=== PATIENT | male | born 1960 | race Caucasian/White ===

== ENCOUNTER → 2017-07-22 11:40 | Outpatient (CLI) | payer BC, SELFPAY ==
--- NOTE | 2017-07-22 11:41 | DI.RAD.S_ITS ---
PROCEDURE: XR CHEST 2V INDICATIONS: 56 year-old male with productive cough for one week. TECHNIQUE: 2 views of the chest were acquired. COMPARISON: [facility], CHEST 2 VIEW, 05/24/2015, 11:04. [facility], CHEST 2 VIEW, 02/07/2014, 9:59. [facility], CHEST 2 VIEW, 08/02/2009, 23:48. FINDINGS: Surgical changes and devices: None. Lungs and pleura: No pleural effusions or pneumothorax. Lungs are clear. Mediastinum: Mediastinal contours are normal. Heart size is normal. Bones and chest wall: No suspicious bony abnormalities. Soft tissues appear unremarkable. IMPRESSION: No acute cardiopulmonary disease. Dictated by: Markell Campbell M.D. on 07/22/2017 at 11:57 Approved by: Markell Campbell M.D. on 07/22/2017 at 11:58
== END ==
PROVIDERS: PCP Family Medicine; Visit Provider Physician Assistant
DX: R05 Cough (principal)
CPT/HCPCS: 71046

== ENCOUNTER → 2018-06-15 14:44 | Outpatient (CLI) | payer BC, SELFPAY ==
[2018-06-15 17:57] LABS: Alanine Aminotransferase 30 IU/L (21-72); Albumin 4.8 g/dL (3.5-5.0); Albumin Globulin Ratio 1.5 (1.0-2.8); Alkaline Phosphatase 68 U/L (38-126); Aspartate Aminotransferase 24 IU/L (17-59); Bilirubin Total 0.5 mg/dL (0.2-1.3); Blood Urea Nitrogen 13 mg/dL (9-20); Calcium 9.7 mg/dL (8.4-10.2); Carbon Dioxide 26 mmol/L (22-32); Chloride 100 mmol/L (98-107); Cholesterol 209 mg/dL (140-199); Estimated Glomerular Filt Rate > 60.0 mL/min (>60); Globulin 3.1 g/dL (1.7-4.1); Glucose 93 mg/dL (70-100); HDL Cholesterol 38 mg/dL (40-60); HEMOLYSIS < 15 (0-50); Potassium 4.5 mmol/L (3.4-5.1); Sodium 136 mmol/L (137-145); Total Protein 7.9 g/dL (6.3-8.2); Triglycerides 412 mg/dL (35-150)
[2018-06-15 18:25] LABS: Prostate Specific Antigen Scrn 0.779 ng/mL (0.1-4.0)
== END ==
PROVIDERS: PCP Student in an Organized Health Care Education/Training Program; Visit Provider Student in an Organized Health Care Education/Training Program
DX: E78.2 Mixed hyperlipidemia (principal); I10 Essential (primary) hypertension; K21.9 Gastro-esophageal reflux disease without esophagitis; M10.9 Gout, unspecified
CPT/HCPCS: 36415; 80053; 80061; 82306; G0103

== ENCOUNTER → 2019-04-04 08:03 | Outpatient (CLI) | payer BC, SELFPAY ==
[2019-04-04 09:34] LABS: Cholesterol 195 mg/dL (140-199); HDL Cholesterol 38 mg/dL (40-60); LDL Cholesterol Calculated 94 mg/dL (<100); Triglycerides 314 mg/dL (35-150)
== END ==
PROVIDERS: PCP Student in an Organized Health Care Education/Training Program; Referring Provider Student in an Organized Health Care Education/Training Program; Visit Provider Student in an Organized Health Care Education/Training Program
DX: E78.2 Mixed hyperlipidemia (principal); Z79.899 Other long term (current) drug therapy
CPT/HCPCS: 36415; 80061

== ENCOUNTER → 2019-11-24 09:15 | Outpatient (CLI) | payer BC, SELFPAY ==
[2019-11-24 10:37] LABS: BUN Creatinine Ratio 17.2 (6-22); Blood Urea Nitrogen 16 mg/dL (9-20); Calcium 9.9 mg/dL (8.4-10.2); Carbon Dioxide 29 mmol/L (22-32); Chloride 102 mmol/L (98-107); Estimated Glomerular Filt Rate > 60.0 mL/min (>60); Glucose 101 mg/dL (80-110); HEMOLYSIS < 15 (0-50); Potassium 4.5 mmol/L (3.4-5.1); Sodium 137 mmol/L (137-145); Uric Acid 4.6 mg/dL (3.5-8.5)
[2019-11-24 11:09] LABS: Prostate Specific Antigen Scrn 0.755 ng/mL (0.1-4.0)
[2019-11-24 11:37] LABS: Vitamin D 25 Hydroxy (D3) 36.6 ng/mL (30.0-100.0)
== END ==
PROVIDERS: PCP Student in an Organized Health Care Education/Training Program; Referring Provider Student in an Organized Health Care Education/Training Program; Visit Provider Student in an Organized Health Care Education/Training Program
DX: I10 Essential (primary) hypertension (principal); M10.9 Gout, unspecified; E55.9 Vitamin D deficiency, unspecified; Z12.5 Encounter for screening for malignant neoplasm of prostate
CPT/HCPCS: 36415; 80048; 82306; 84550; G0103

== ENCOUNTER 2020-06-11 07:25 | Outpatient (RCR) | payer BC, SELFPAY ==
--- NOTE | 2020-06-11 15:37 | PT.OIE ---
Current Diagnoses Sprain of unspecified rotator cuff capsule, initial encounter (06/11/20) Past Medical History (Last Updated 11/24/19 @ 09:18 by Benigno Harris MD) TRINH-inhibitor cough Gout Hypertension Visit Care Team Role Provider Type Benigno Harris MD Attending Provider Physician Family Provider Primary Care Provider Referring Provider Specialty: Internal Medicine Address: [address] [place] [address], [address], [facility] Email: [email or web address] Physical Therapy Initial Evaluation PT-OP-A Visit Information Start: 06/08/20 07:19 Freq: Status: Active Protocol: Document 06/11/20 07:31 MB (Rec: 06/11/20 08:10 MB [id number]) Out-Patient Physical Therapy Visit Information Visit Information Visit Type Initial Evaluation Visit Note [place] Out of state, 30 visits per year Visit Start Time 07:31 Visit Stop Time 08:00 Total Visit Minutes 29 Visit Number 1 Evaluation Information Evaluation Date 06/11/20 PT-OP-B Current Condition Start: 06/08/20 07:19 Freq: Status: Active Protocol: Document 06/11/20 07:31 MB (Rec: 06/11/20 08:10 MB [id number]) Current Condition History of Current Condition Onset Date A couple of months ago Current Complaints Left shoulder pain and decreased range of motion History of Current Condition Pt reports that a couple of months ago, he was moving some furniture in his house and then he experienced sharp pain at the top of his left shoulder. He has a lump on the top of his shoulder. Pt reports the pain is not too bad. He notices pain when he is resting. He is waking up at night and losing about an hour or two of sleep. He has trouble lifting his arm up out to the side. The further he lifts his left arm to the side , the more pain he has. His doctor told him he needs a MRI in the surgical window. He is in PT to try it before getting a MRI. 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 He is playing T ball with his grandson. PMH: HTN, gout, HLD Treatment Goals Patient/Caregiver Goals To determine what is going on, decrease pain at night, fix lump on his left shoulder PT-OP-C Subjective Start: 06/08/20 07:19 Freq: Status: Active Protocol: Document 06/11/20 07:31 MB (Rec: 06/11/20 08:10 MB [id number]) OP-PT Subjective Patient Comments Patient Comments See history of current condition Patient Reported Progress Same Patient Questionnaires Quick Dash- Upper Extremity Quick Dash UE Score 15 Quick Dash UE Impairment 1 to 19% Impaired (Score 1-19) OP-PT Pain Assessment Comments Pain Comments Most pain at rest and awakens him at night. Pain with active and passive abduction, 3-4/10 PT-OP-F Manual Assessment Start: 06/08/20 07:19 Freq: Status: Active Protocol: Document 06/11/20 07:31 MB (Rec: 06/11/20 14:15 MB [id number]) Manual Assessments Other Manual Assessments Other Manual Assessments Bony protruberance of L AC joint, left upper traps with increased tension compared to the right PT-OP-J Posture/Palpation/Skin Start: 06/08/20 07:19 Freq: Status: Active Protocol: Document 06/11/20 07:31 MB (Rec: 06/11/20 14:15 MB [id number]) Posture Evaluation Comments Posture Comments Forward head, rounded shoulders, obvious bony abnormality left AC joint with it protruded superiorly, sway back posture, right iliac crest higher than the left, increased Pelon angle PT-OP-K Range of Motion Start: 06/08/20 07:19 Freq: Status: Active Protocol: Document 06/11/20 07:31 MB (Rec: 06/11/20 15:37 MB [id number]) Shoulder Goniometric Range of Motion Shoulder Left Shoulder ROM WFL No Testing Position Standing Flexion 165 Abduction 130 Comments ER and IR passively in supine with shoulder 90/90 is mildly reduced and pt report concern about pain Pain 3-4/10 with active left shoulder abduction in standing Right Shoulder ROM WFL Yes Testing Position Standing Flexion 165 Abduction 162 Comments Normal ER and IR passively in supine with shoulder at 90/90 Elbow/Forearm Range of Motion Elbow/Forearm Bilateral Elbow/Forearm ROM WFL Yes ROM Testing Position Standing Wrist Goniometric Range of Motion Wrist Bilateral Wrist ROM WFL Yes PT-OP-M Strength Start: 06/08/20 07:19 Freq: Status: Active Protocol: Document 06/11/20 07:31 MB (Rec: 06/11/20 15:37 MB [id number]) Shoulder Strength Shoulder Manual Muscle Testing Left Comments Deferred MMT in setting of anatomical changes after injury Right Flexion 5 Normal Abduction (C5) 5 Normal External Rotation 5 Normal Internal Rotation 5 Normal Elbow/Forearm Strength Elbow and Forearm Manual Muscle Testing Left Flexion (C6) 5 Normal Extension (C7) 5 Normal Pronation 5 Normal Supination 5 Normal Right Flexion (C6) 5 Normal Extension (C7) 5 Normal Pronation 5 Normal Supination 5 Normal Wrist Strength Wrist Manual Muscle Testing Left Flexion (C7) 5 Normal Extension (C6) 5 Normal Right Flexion (C7) 5 Normal Extension (C6) 5 Normal PT-OP-T Assessment and Plan Start: 06/08/20 07:19 Freq: Status: Active Protocol: Document 06/11/20 07:31 MB (Rec: 06/11/20 08:15 MB [id number]) Physical Therapy Assessment Rehab Potential Rehabilitation Potential Poor Evaluation Complexity Number of Personal Factors/Comorbidities 1-2 Number of Body Systems Impaired 1-2 Clinical Presentation at Evaluation Unstable Impairments Impairments Activity Tolerance,Functional Activities,Pain,Posture,ROM, Soft Tissue Mobility,Strength Other Concerns Barriers to Rehabilitation Bony abnormality left shoulder needs to be addressed Assessment Summary Assessment Pt is a 59 y/o male presenting 2 months post injury to left shoulder when moving furniture at his house. He heard a pop, had sharp pain and then noticed a lump on the top of his left shoulder. He saw his PCP who he reports told pt that he needs a MRI but that he has to see PT before MRI d/ t insurance constraints. Pt presents with obvious displacement of his left AC joint with bony protrusion, some changes at the GH line, decreased active and passive abduction and possible rotator cuff, ligamentous and capsular injury. He is not appropriate for PT until these anatomical changes are addressed. PT recommends orthopedic consult and MRI with contrast. PT encourages pt to follow-up with Dr. Harris and PT will send this note with recommendations today. Pt will benefit from PT after his anatomical changes are addressed. Physical Therapy Plan Frequency and Duration Frequency of Treatment Discharge Discharge Physical Therapy Discharge Comments Needs orthopedic consult
--- NOTE | 2020-06-11 15:38 | PT.OPPOC ---
Physical, Occupational & Speech Therapy At [facility] Current Diagnoses Sprain of unspecified rotator cuff capsule, initial encounter (06/11/20) Visit Care Team Role Provider Type Benigno Harris MD Attending Provider Physician Family Provider Primary Care Provider Referring Provider Specialty: Internal Medicine Address: [address] [place] [address], [address], [facility] Email: [email or web address] Plan Of Care PT-OP-T Assessment and Plan Start: 06/08/20 07:19 Freq: Status: Active Protocol: Document 06/11/20 07:31 MB (Rec: 06/11/20 08:15 MB [id number]) Physical Therapy Assessment Rehab Potential Rehabilitation Potential Poor Evaluation Complexity Number of Personal Factors/Comorbidities 1-2 Number of Body Systems Impaired 1-2 Clinical Presentation at Evaluation Unstable Impairments Impairments Activity Tolerance,Functional Activities,Pain,Posture,ROM, Soft Tissue Mobility,Strength Other Concerns Barriers to Rehabilitation Bony abnormality left shoulder needs to be addressed Assessment Summary Assessment Pt is a 59 y/o male presenting 2 months post injury to left shoulder when moving furniture at his house. He heard a pop, had sharp pain and then noticed a lump on the top of his left shoulder. He saw his PCP who he reports told pt that he needs a MRI but that he has to see PT before MRI d/ t insurance constraints. Pt presents with obvious displacement of his left AC joint with bony protrusion, some changes at the GH line, decreased active and passive abduction and possible rotator cuff, ligamentous and capsular injury. He is not appropriate for PT until these anatomical changes are addressed. PT recommends orthopedic consult and MRI with contrast. PT encourages pt to follow-up with Dr. Harris and PT will send this note with recommendations today. Pt will benefit from PT after his anatomical changes are addressed. Physical Therapy Plan Frequency and Duration Frequency of Treatment Discharge Discharge Physical Therapy Discharge Comments Needs orthopedic consult Electronically Signed by: Kita Villa PT 06/11/20 [id number] Please Sign and Return: I have reviewed this Plan of Care and certify that the skilled therapy services above are required to meet the patient?s needs. Physician Signature Date Printed Name and Credentials Clinical Instructor Signature Printed Name and Credentials
== END 2020-06-12 08:53 | disposition home or self-care (01) ==
LOC: PHYS 07:25
PROVIDERS: Family Provider Student in an Organized Health Care Education/Training Program; PCP Student in an Organized Health Care Education/Training Program; Referring Provider Student in an Organized Health Care Education/Training Program; Visit Provider Student in an Organized Health Care Education/Training Program
DX: S43.429A Sprain of unspecified rotator cuff capsule, initial encounter (principal)
CPT/HCPCS: 97161

== ENCOUNTER → 2020-06-19 06:40 | Outpatient (CLI) | payer BC, SELFPAY ==
--- NOTE | 2020-06-19 06:42 | DI.MRI.S_ITS ---
PROCEDURE: MR SHOULDER LT WO CON INDICATIONS: Pain, injury, joint distortion TECHNIQUE: Noncontrast oblique coronal T2 fast spin echo with fat saturation, oblique sagittal T1 spin echo and T2 fast spin echo with fat saturation, axial T1 spin echo and T2 fast spin echo with fat saturation through the shoulder. COMPARISON: None. FINDINGS: Image quality: Excellent. Rotator cuff: Tendinosis and low-grade articular and bursal surface partial thickness tear involving distal supraspinatus is seen at its insertion on the humeral head extending to musculotendinous junction. Distal infraspinatus tendinosis is noted. Distal subscapularis tendon is intact. No full-thickness rotator cuff tendon rupture. Sagittal images demonstrate no significant muscle atrophy. Bones and bursae: No bone marrow contusions or fractures. Moderate acromioclavicular joint osteoarthritic changes are seen. Mild glenohumeral joint osteoarthritic changes are also noted. No pathologic subacromial-subdeltoid or subcoracoid bursal fluid is present. Capsule and soft tissues: Focal area of signal abnormality involving superior labrum at 12 o'clock position is seen concerning for focal superior labral tear. Degenerative changes are noted involving inferior labrum with suggestion of anterior-inferior labral tear at 4 to 6 o'clock position. The long head of the biceps tendinosis is seen. The rotator interval appears normal, without fibrosis. The coracohumeral ligament is normal in thickness. IMPRESSION: 1. Tendinosis and low-grade articular and bursal surface partial thickness tear involving distal supraspinatus extending to musculotendinous junction. Distal infraspinatus tendinosis. 2. Moderate acromioclavicular joint osteoarthritis and mild glenohumeral joint osteoarthritis. 3. Finding is concerning for focal superior labral tear at 12 o'clock position and anterior-inferior labral tear at 4 to 6 o'clock position. 4. Proximal intra-articular portion of long head of biceps tendinosis. Dictated by: Darrin Ingram M.D. on 06/19/2020 at 8:57 Approved by: Darrin Ingram M.D. on 06/19/2020 at 11:33
== END ==
PROVIDERS: Family Provider Student in an Organized Health Care Education/Training Program; PCP Student in an Organized Health Care Education/Training Program; Referring Provider Student in an Organized Health Care Education/Training Program; Visit Provider Student in an Organized Health Care Education/Training Program
DX: S46.012A Strain of muscle(s) and tendon(s) of the rotator cuff of left shoulder, initial encounter (principal); M25.512 Pain in left shoulder; M19.012 Primary osteoarthritis, left shoulder; X58.XXXA Exposure to other specified factors, initial encounter
CPT/HCPCS: 73221

== ENCOUNTER 2020-09-21 07:30 | Outpatient (RCR) | payer BC, SELFPAY ==
--- NOTE | 2020-07-27 10:13 | PT.OIE ---
Current Diagnoses Primary osteoarthritis, left shoulder (07/27/20) Pain in left shoulder (07/27/20) Incomplete rotator cuff tear or rupture of left shoulder, not specified as traumatic (07/27/20) Past Medical History (Last Updated 11/24/19 @ 09:18 by Benigno Harris MD) TRINH-inhibitor cough Gout Hypertension Visit Care Team Role Provider Type Benigno Harris MD Primary Care Provider Physician Specialty: Internal Medicine Address: [address] [place] [address], [address], [place], [address] Email: [email or web address] [email or web address] Miranda MD Attending Provider Physician Referring Provider Specialty: Orthopedic Surgery Address: [address] [place] [address], [address] Email: [email or web address] Physical Therapy Initial Evaluation PT-OP-A Visit Information Start: 07/20/20 16:00 Freq: Status: Active Protocol: Document 07/27/20 07:25 MB (Rec: 07/27/20 07:42 MB [id number]) Out-Patient Physical Therapy Visit Information Visit Information Visit Type Initial Evaluation Visit Note [place] out of [place] Visit Start Time 07:25 Visit Stop Time 08:00 Total Visit Minutes 35 Visit Number 1 Evaluation Information Evaluation Date 07/27/20 Precautions Precautions Post-op left shoulder arthroscopic decompression and protocol scanned into EMR though it is vague and there is no op report yet. Pt states that surgeon told him he can be out of the sling 3 days post-op which is 07/28/20. He was told to wear the sling for comfort. PT-OP-B Current Condition Start: 07/20/20 16:00 Freq: Status: Active Protocol: Document 07/27/20 07:25 MB (Rec: 07/27/20 07:42 MB [id number]) Current Condition History of Current Condition Onset Date 07/25/20 Current Complaints Unable to use left arm, pain is improved post-op History of Current Condition Pt returned to Dr. Harris's office and then went to Dr. Miranda's office. He was found to have a tear, bone spurs and compression of a sac. He had surgery two days ago on 07/25/20 and underwent decompression including shaving the bone spurs and cleaning up arthritis. PT has not yet received op report. PT did receive vague post-op guidelines. Pt was told by surgeon that his arm is great and he can be out of the sling 3 days post-op, which is 07/28. Pt reports 3/10 anterior left shoulder pain. From initial eval with PT before surgery: Pt reports that a couple of months ago, he was moving some furniture in his house and then he experienced sharp pain at the top of his left shoulder. He has a lump on the top of his shoulder. Pt reports the pain is not too bad. He notices pain when he is resting. He is waking up at night and losing about an hour or two of sleep. He has trouble lifting his arm up out to the side. The further he lifts his left arm to the side , the more pain he has. Pt underwent left arthroscopic decompression and debridement on From initial eval before surgery: His doctor told him he needs a MRI in the surgical window. He is in PT to try it before getting a MRI . 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 He is playing T ball with his grandson. PMH: HTN, gout, HLD Treatment Goals Patient/Caregiver Goals To get back to use of his arm PT-OP-C Subjective Start: 07/20/20 16:00 Freq: Status: Active Protocol: Document 07/27/20 07:25 MB (Rec: 07/27/20 10:07 MB [id number]) OP-PT Subjective Patient Comments Patient Comments See history of current condition Patient Reported Progress Improving Patient Questionnaires Quick Dash- Upper Extremity Quick Dash UE Score 33 Quick Dash UE Impairment 40 to 59% Impaired (Score 40- 59) PT-OP-K Range of Motion Start: 07/20/20 16:00 Freq: Status: Active Protocol: Document 07/27/20 07:25 MB (Rec: 07/27/20 10:12 MB [id number]) Shoulder Goniometric Range of Motion Shoulder Left Shoulder ROM WFL No Comments Active left shoulder flexion and abduction no more than 20 deg when taking off sling Passive abduction to 63 deg and ER 20 deg and IR 10 deg in supine Right Shoulder ROM WFL Yes Testing Position Standing Flexion 153 Abduction 154 Internal Rotation Behind Back (text) T10 Comments Passive ER and IR with shoulder in 90/90 in supine normal Wrist Goniometric Range of Motion ROM Limitations Comments Reduced wrist extension B that appears to be degenerative in nature PT-OP-M Strength Start: 07/20/20 16:00 Freq: Status: Active Protocol: Document 07/27/20 07:25 MB (Rec: 07/27/20 10:12 MB [id number]) Shoulder Strength Shoulder Manual Muscle Testing Right Flexion 5 Normal Abduction (C5) 5 Normal External Rotation 5 Normal Internal Rotation 5 Normal Left Comments Deferred MMT d/t surgery two days ago Elbow/Forearm Strength Elbow and Forearm Manual Muscle Testing Right Flexion (C6) 5 Normal Extension (C7) 5 Normal Pronation 5 Normal Supination 5 Normal Left Comments Deferred MMT s/p left shoulder surgery 2 days ago Wrist Strength Wrist Manual Muscle Testing Right Comments In reduced range Left Flexion (C7) 5 Normal Extension (C6) 5 Normal Comments In reduced range PT-OP-Q Treatments Start: 07/20/20 16:00 Freq: Status: Active Protocol: Document 07/27/20 07:25 MB (Rec: 07/27/20 08:09 MB [id number]) Therapeutic Exercises Standing Exercises Use of racquet ball for self-massage Standing Exercise Name Intrascapular muscles today Side left Pendulums Side left Comments CW, CCW moving hips and arm follows, forward and backwards Self-Care/Home Management Treatment Education Other Education Use of ice, proper sleeping position with support of head and neck and arms, wearing sling during risky activities where LOB could result and protective response of left arm PT-OP-T Assessment and Plan Start: 07/20/20 16:00 Freq: Status: Active Protocol: Document 07/27/20 07:25 MB (Rec: 07/27/20 08:16 MB [id number]) Physical Therapy Assessment Rehab Potential Rehabilitation Potential Good Evaluation Complexity Number of Personal Factors/Comorbidities 1-2 Number of Body Systems Impaired 1-2 Clinical Presentation at Evaluation Stable Impairments Impairments Activity Tolerance,Balance, Edema,Functional Activities, Functional Mobility,Integument ,Pain,Posture,ROM,Soft Tissue Mobility,Strength,Transfers Other Impairments Personal factors include post- op and unable to drive currently. Body systems affected include musculoskeletal. His clinical presentation is stable post-op . Other Concerns Fall Risk Yes Goals 4 Slab Worker Goal (LTG) Pt will present with at least 4/5 left shoulder flexion, abduction, ER and IR strength to allow normal functional use of arm by 10/27/20. LTG Duration 12 weeks 3 Halfway Goal (LTG) Pt will perform progressive HEP with I including postural, ROM, relaxation and strengthening exercises to allow return to previous active lifestyle by 10/27/20. LTG Duration 12 weeks 2 Slab Worker Goal (LTG) Pt will present with AROM flexion, abduction and IR left shoulder equal to the right to allow functional mobility for ADLs and IADLs by 10/27/20. LTG Duration 12 weeks 1 Impairment QuickDASH reflects 50% impairment Slab Worker Goal (LTG) Pt will present with an improved QuickDASH score to reflect no more than 10% impairment to allow return to previous active lifestyle by . LTG Duration 12 weeks Assessment Summary Assessment Pt is a 59 y/o male evaluated by this PT earlier this spring after left shoulder pain and limitations after injury moving furniture. At that time , PT referred pt back to PCP d /t concern for need for MRI and orthopedic consult. Pt was found to have left shoulder subacromial impingement, AC joint arthritis and partial RCT (supraspinatus). He was found to have osteophytes as well. He underwent left shoulder subacromial decompression, distal clavicle excision, debridement and excision of AC joint on 07/25/20 . Pt states that the surgeon told him he could get out of the sling in 3 days (07/28/20) and vague shoulder protocol sent through EMR. PT receives op note after evaluation today . Ed pt in proper sleeping positioning, pendulums and use of racquet ball for intrascapular massage today. He presents with limitations in left shoulder range and MMT is deferred 2 days post-op. Pt will benefit from PT for progressive passive, AAROM, AROM and strengthening following along protocol guidelines. Functional prognosis is good. Physical Therapy Plan Frequency and Duration Frequency of Treatment 2x/Week Duration of Treatment 12 weeks Plan of Care Start Date 07/27/20 Plan of Care End Date 10/29/20 Therapeutic Interventions Therapeutic Interventions Balance Training,Canalithic Repositioning,Coordination Training,Gait Training,Home Exercise Program,Joint Mobilizations,Manual Therapy, Neuromuscular Re-education, Patient/Caregiver Education, Self-Care/Home Management, Sensory Integration,Soft Tissue Mobilization,Taping, Therapeutic Activities, Therapeutic Exercises Modalities Cold Pack/Ice Massage,Hot Packs Next Visit Focus/Plan Next Note Type Treatment Note Next Visit Plan Thoracic manual work and PROM left shoulder progress to AAROM with cane
--- NOTE | 2020-07-27 10:13 | PT.OPPOC ---
Physical, Occupational & Speech Therapy At [facility] Current Diagnoses Primary osteoarthritis, left shoulder (07/27/20) Pain in left shoulder (07/27/20) Incomplete rotator cuff tear or rupture of left shoulder, not specified as traumatic (07/27/20) Visit Care Team Role Provider Type Benigno Harris MD Primary Care Provider Physician Specialty: Internal Medicine Address: [address] [place] [address], [address], [place], [address] Email: [email or web address] Ramon Miranda MD Attending Provider Physician Referring Provider Specialty: Orthopedic Surgery Address: [address] [place] [address], [id number] Email: [email or web address] Plan Of Care PT-OP-T Assessment and Plan Start: 07/20/20 16:00 Freq: Status: Active Protocol: Document 07/27/20 07:25 MB (Rec: 07/27/20 08:16 MB [id number]) Physical Therapy Assessment Rehab Potential Rehabilitation Potential Good Evaluation Complexity Number of Personal Factors/Comorbidities 1-2 Number of Body Systems Impaired 1-2 Clinical Presentation at Evaluation Stable Impairments Impairments Activity Tolerance,Balance, Edema,Functional Activities, Functional Mobility,Integument ,Pain,Posture,ROM,Soft Tissue Mobility,Strength,Transfers Other Impairments Personal factors include post- op and unable to drive currently. Body systems affected include musculoskeletal. His clinical presentation is stable post-op . Other Concerns Fall Risk Yes Goals 4 Fdc Goal (LTG) Pt will present with at least 4/5 left shoulder flexion, abduction, ER and IR strength to allow normal functional use of arm by 10/27/20. LTG Duration 12 weeks 3 Police Manager Goal (LTG) Pt will perform progressive HEP with I including postural, ROM, relaxation and strengthening exercises to allow return to previous active lifestyle by 10/27/20. LTG Duration 12 weeks 2 Fdc Goal (LTG) Pt will present with AROM flexion, abduction and IR left shoulder equal to the right to allow functional mobility for ADLs and IADLs by 10/27/20. LTG Duration 12 weeks 1 Impairment QuickDASH reflects 50% impairment Fdc Goal (LTG) Pt will present with an improved QuickDASH score to reflect no more than 10% impairment to allow return to previous active lifestyle by . LTG Duration 12 weeks Assessment Summary Assessment Pt is a 59 y/o male evaluated by this PT earlier this spring after left shoulder pain and limitations after injury moving furniture. At that time , PT referred pt back to PCP d /t concern for need for MRI and orthopedic consult. Pt was found to have left shoulder subacromial impingement, AC joint arthritis and partial RCT (supraspinatus). He was found to have osteophytes as well. He underwent left shoulder subacromial decompression, distal clavicle excision, debridement and excision of AC joint on 07/25/20 . Pt states that the surgeon told him he could get out of the sling in 3 days (07/28/20) and vague shoulder protocol sent through EMR. PT receives op note after evaluation today . Ed pt in proper sleeping positioning, pendulums and use of racquet ball for intrascapular massage today. He presents with limitations in left shoulder range and MMT is deferred 2 days post-op. Pt will benefit from PT for progressive passive, AAROM, AROM and strengthening following along protocol guidelines. Functional prognosis is good. Physical Therapy Plan Frequency and Duration Frequency of Treatment 2x/Week Duration of Treatment 12 weeks Plan of Care Start Date 07/27/20 Plan of Care End Date 10/29/20 Therapeutic Interventions Therapeutic Interventions Balance Training,Canalithic Repositioning,Coordination Training,Gait Training,Home Exercise Program,Joint Mobilizations,Manual Therapy, Neuromuscular Re-education, Patient/Caregiver Education, Self-Care/Home Management, Sensory Integration,Soft Tissue Mobilization,Taping, Therapeutic Activities, Therapeutic Exercises Modalities Cold Pack/Ice Massage,Hot Packs Next Visit Focus/Plan Next Note Type Treatment Note Next Visit Plan Thoracic manual work and PROM left shoulder progress to AAROM with cane Plan of Care Dates Plan of Care Start Date 07/27/20 Plan of Care End Date 10/29/20 Electronically Signed by: Kita Villa PT 07/27/20 1013 Please Sign and Return: I have reviewed this Plan of Care and certify that the skilled therapy services above are required to meet the patient?s needs. Physician Signature Date Printed Name and Credentials Clinical Instructor Signature Printed Name and Credentials
--- NOTE | 2020-07-30 11:13 | PT.OTN ---
Current Diagnoses Primary osteoarthritis, left shoulder (07/30/20) Pain in left shoulder (07/30/20) Incomplete rotator cuff tear or rupture of left shoulder, not specified as traumatic (07/30/20) Physical Therapy Treatment Note PT-OP-A Visit Information Start: 07/20/20 16:00 Freq: Status: Active Protocol: Document 07/30/20 10:32 MB (Rec: 07/30/20 11:13 MB [id number]) Out-Patient Physical Therapy Visit Information Visit Information Visit Type Treatment Note Visit Note [place] out [place] [facility] Visit Start Time 10:32 Visit Stop Time 11:11 Total Visit Minutes 39 Visit Number 2 Precautions Precautions Post-op left shoulder arthroscopic decompression and protocol scanned into EMR though it is vague and there is no op report yet. Pt states that surgeon told him he can be out of the sling 3 days post-op which is 07/28/20. He was told to wear the sling for comfort. PT-OP-B Current Condition Start: 07/20/20 16:00 Freq: Status: Active Protocol: Document 07/27/20 07:25 MB (Rec: 07/27/20 07:42 MB [id number]) Current Condition History of Current Condition Onset Date 07/25/20 Current Complaints Unable to use left arm, pain is improved post-op History of Current Condition Pt returned to Dr. Harris's office and then went to Dr. Miranda's office. He was found to have a tear, bone spurs and compression of a sac. He had surgery two days ago on 07/25/20 and underwent decompression including shaving the bone spurs and cleaning up arthritis. PT has not yet received op report. PT did receive vague post-op guidelines. Pt was told by surgeon that his arm is great and he can be out of the sling 3 days post-op, which is 07/28. Pt reports 3/10 anterior left shoulder pain. From initial eval with PT before surgery: Pt reports that a couple of months ago, he was moving some furniture in his house and then he experienced sharp pain at the top of his left shoulder. He has a lump on the top of his shoulder. Pt reports the pain is not too bad. He notices pain when he is resting. He is waking up at night and losing about an hour or two of sleep. He has trouble lifting his arm up out to the side. The further he lifts his left arm to the side , the more pain he has. Pt underwent left arthroscopic decompression and debridement on From initial eval before surgery: His doctor told him he needs a MRI in the surgical window. He is in PT to try it before getting a MRI . 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 He is playing T ball with his grandson. PMH: HTN, gout, HLD Treatment Goals Patient/Caregiver Goals To get back to use of his arm PT-OP-C Subjective Start: 07/20/20 16:00 Freq: Status: Active Protocol: Document 07/30/20 10:32 MB (Rec: 07/30/20 11:13 MB [id number]) OP-PT Subjective Patient Comments Patient Comments Pt states that he is doing well. PT-OP-K Range of Motion Start: 07/20/20 16:00 Freq: Status: Active Protocol: Document 07/27/20 07:25 MB (Rec: 07/27/20 10:12 MB [id number]) Shoulder Goniometric Range of Motion Shoulder Left Shoulder ROM WFL No Comments Active left shoulder flexion and abduction no more than 20 deg when taking off sling Passive abduction to 63 deg and ER 20 deg and IR 10 deg in supine Right Shoulder ROM WFL Yes Testing Position Standing Flexion 153 Abduction 154 Internal Rotation Behind Back (text) T10 Comments Passive ER and IR with shoulder in 90/90 in supine normal Wrist Goniometric Range of Motion ROM Limitations Comments Reduced wrist extension B that appears to be degenerative in nature PT-OP-M Strength Start: 07/20/20 16:00 Freq: Status: Active Protocol: Document 07/27/20 07:25 MB (Rec: 07/27/20 10:12 MB [id number]) Shoulder Strength Shoulder Manual Muscle Testing Right Flexion 5 Normal Abduction (C5) 5 Normal External Rotation 5 Normal Internal Rotation 5 Normal Left Comments Deferred MMT d/t surgery two days ago Elbow/Forearm Strength Elbow and Forearm Manual Muscle Testing Right Flexion (C6) 5 Normal Extension (C7) 5 Normal Pronation 5 Normal Supination 5 Normal Left Comments Deferred MMT s/p left shoulder surgery 2 days ago Wrist Strength Wrist Manual Muscle Testing Right Comments In reduced range Left Flexion (C7) 5 Normal Extension (C6) 5 Normal Comments In reduced range PT-OP-Q Treatments Start: 07/20/20 16:00 Freq: Status: Active Protocol: Document 07/30/20 10:32 MB (Rec: 07/30/20 11:13 MB [id number]) Therapeutic Exercises Supine Exercises Cane flexion with RUE support Side bilateral Comments 10 reps slowly, head and neck supported Sitting Exercises Thoracic rotation with breathing Side bilateral Comments Breathing end range Manual Therapy Treatment Other Other Manual Treatments Pt prone: B scapular mobs grade III, PA thoracic mobs grade III with pt performing breathing with mobilization and he presents with very tight ribs and thorax, grade III PA mobs left shoulder in prone at GH joint, passive left shoulder ROM. Positional release left pects in supine. Pt's dressing is off and he has steri strips and areas of echymosis left shoulder. PROM left shoulder flexion, abduction and ER/IR PT-OP-T Assessment and Plan Start: 07/20/20 16:00 Freq: Status: Active Protocol: Document 07/30/20 10:32 MB (Rec: 07/30/20 11:13 MB [id number]) Physical Therapy Assessment Rehab Potential Rehabilitation Potential Good Evaluation Complexity Number of Personal Factors/Comorbidities 1-2 Number of Body Systems Impaired 1-2 Clinical Presentation at Evaluation Stable Impairments Impairments Activity Tolerance,Balance, Edema,Functional Activities, Functional Mobility,Integument ,Pain,Posture,ROM,Soft Tissue Mobility,Strength,Transfers Other Impairments Personal factors include post- op and unable to drive currently. Body systems affected include musculoskeletal. His clinical presentation is stable post-op . Other Concerns Fall Risk Yes Goals 4 Alf Goal (LTG) Pt will present with at least 4/5 left shoulder flexion, abduction, ER and IR strength to allow normal functional use of arm by 10/27/20. LTG Duration 12 weeks 3 Alf Goal (LTG) Pt will perform progressive HEP with I including postural, ROM, relaxation and strengthening exercises to allow return to previous active lifestyle by 10/27/20. LTG Duration 12 weeks 2 Clinical Haematologist Goal (LTG) Pt will present with AROM flexion, abduction and IR left shoulder equal to the right to allow functional mobility for ADLs and IADLs by 10/27/20. LTG Duration 12 weeks 1 Impairment QuickDASH reflects 50% impairment Alf Goal (LTG) Pt will present with an improved QuickDASH score to reflect no more than 10% impairment to allow return to previous active lifestyle by . LTG Duration 12 weeks Assessment Summary Assessment Pt presents with a lot of thoracic tension and initiated work for this today. Con't progression as written below. Added cane flexion and thoracic rotation in sitting to HEP. Physical Therapy Plan Frequency and Duration Frequency of Treatment 2x/Week Duration of Treatment 12 weeks Plan of Care Start Date 07/27/20 Plan of Care End Date 10/29/20 Therapeutic Interventions Therapeutic Interventions Balance Training,Canalithic Repositioning,Coordination Training,Gait Training,Home Exercise Program,Joint Mobilizations,Manual Therapy, Neuromuscular Re-education, Patient/Caregiver Education, Self-Care/Home Management, Sensory Integration,Soft Tissue Mobilization,Taping, Therapeutic Activities, Therapeutic Exercises Modalities Cold Pack/Ice Massage,Hot Packs Next Visit Focus/Plan Next Note Type Treatment Note Next Visit Plan Progress cane abduction
--- NOTE | 2020-08-02 08:15 | PT.OTN ---
Current Diagnoses Primary osteoarthritis, left shoulder (08/02/20) Pain in left shoulder (08/02/20) Incomplete rotator cuff tear or rupture of left shoulder, not specified as traumatic (08/02/20) Physical Therapy Treatment Note PT-OP-A Visit Information Start: 07/20/20 16:00 Freq: Status: Active Protocol: Document 08/02/20 07:31 SP (Rec: 08/02/20 11:40 SP [id number]) Out-Patient Physical Therapy Visit Information Visit Information Visit Type Treatment Note Visit Note [place] out of [place] [facility] Visit Start Time 07:31 Visit Stop Time 08:15 Total Visit Minutes 44 Visit Number 3 Number of COPYMAN Visits 1 Evaluation Information Evaluation Date 07/27/20 Precautions Precautions Post-op left shoulder arthroscopic decompression and protocol scanned into EMR though it is vague and there is no op report yet. Pt states that surgeon told him he can be out of the sling 3 days post-op which is 07/28/20. He was told to wear the sling for comfort. PT-OP-B Current Condition Start: 07/20/20 16:00 Freq: Status: Active Protocol: Document 07/27/20 07:25 MB (Rec: 07/27/20 07:42 MB [id number]) Current Condition History of Current Condition Onset Date 07/25/20 Current Complaints Unable to use left arm, pain is improved post-op History of Current Condition Pt returned to Dr. Harris's office and then went to Dr. Miranda's office. He was found to have a tear, bone spurs and compression of a sac. He had surgery two days ago on 07/25/20 and underwent decompression including shaving the bone spurs and cleaning up arthritis. PT has not yet received op report. PT did receive vague post-op guidelines. Pt was told by surgeon that his arm is great and he can be out of the sling 3 days post-op, which is 07/28. Pt reports 3/10 anterior left shoulder pain. From initial eval with PT before surgery: Pt reports that a couple of months ago, he was moving some furniture in his house and then he experienced sharp pain at the top of his left shoulder. He has a lump on the top of his shoulder. Pt reports the pain is not too bad. He notices pain when he is resting. He is waking up at night and losing about an hour or two of sleep. He has trouble lifting his arm up out to the side. The further he lifts his left arm to the side , the more pain he has. Pt underwent left arthroscopic decompression and debridement on From initial eval before surgery: His doctor told him he needs a MRI in the surgical window. He is in PT to try it before getting a MRI . 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 He is playing T ball with his grandson. PMH: HTN, gout, HLD Treatment Goals Patient/Caregiver Goals To get back to use of his arm PT-OP-C Subjective Start: 07/20/20 16:00 Freq: Status: Active Protocol: Document 08/02/20 07:31 SP (Rec: 08/02/20 11:40 SP [id number]) OP-PT Subjective Patient Comments Patient Comments Pt states getting better every day. Not really having pain. Patient Reported Progress Improving PT-OP-K Range of Motion Start: 07/20/20 16:00 Freq: Status: Active Protocol: Document 07/27/20 07:25 MB (Rec: 07/27/20 10:12 MB [id number]) Shoulder Goniometric Range of Motion Shoulder Left Shoulder ROM WFL No Comments Active left shoulder flexion and abduction no more than 20 deg when taking off sling Passive abduction to 63 deg and ER 20 deg and IR 10 deg in supine Right Shoulder ROM WFL Yes Testing Position Standing Flexion 153 Abduction 154 Internal Rotation Behind Back (text) T10 Comments Passive ER and IR with shoulder in 90/90 in supine normal Wrist Goniometric Range of Motion ROM Limitations Comments Reduced wrist extension B that appears to be degenerative in nature PT-OP-M Strength Start: 07/20/20 16:00 Freq: Status: Active Protocol: Document 07/27/20 07:25 MB (Rec: 07/27/20 10:12 MB [id number]) Shoulder Strength Shoulder Manual Muscle Testing Right Flexion 5 Normal Abduction (C5) 5 Normal External Rotation 5 Normal Internal Rotation 5 Normal Left Comments Deferred MMT d/t surgery two days ago Elbow/Forearm Strength Elbow and Forearm Manual Muscle Testing Right Flexion (C6) 5 Normal Extension (C7) 5 Normal Pronation 5 Normal Supination 5 Normal Left Comments Deferred MMT s/p left shoulder surgery 2 days ago Wrist Strength Wrist Manual Muscle Testing Right Comments In reduced range Left Flexion (C7) 5 Normal Extension (C6) 5 Normal Comments In reduced range PT-OP-Q Treatments Start: 07/20/20 16:00 Freq: Status: Active Protocol: Document 08/02/20 07:31 SP (Rec: 08/02/20 11:40 SP [id number]) Therapeutic Exercises Supine Exercises cane ER w/RUE support Side left Comments 10 reps slowly, head and neck supported cane abd w/ RUE support Supine Exercise Name added to HEP Side left Comments 10 reps slowly, head and neck supported- pain free range Cane flexion with RUE support Side bilateral Comments 10 reps slowly, head and neck supported Sidelying Exercises open book Sidelying Exercise Name hand on head (in PT only) Side left Comments good feedback response no pain , less stiffness in mid back and shld complex AAROM ABD Sidelying Exercise Name 90> 110* ( PT only) Side left Comments pain free range Sitting Exercises Thoracic rotation with breathing Side bilateral Comments Breathing end range Standing Exercises Pendulums Standing Exercise Name flex, ext, abd, CW, CCW Side left Comments cued move hips and arm follows , forward and backwards Manual Therapy Treatment Soft Tissue Mobilization UT, pec Body Location L Mobilization Type Rolling,Strumming,Sustained Pressure,Other Intensity/Depth Moderate Body Position Sidelying Comments good response, initiated MWM UT head turn nod using theracane, review standing racquetball at wall post scap musculature. Joint Mobilizations scapular PNF Joint L Grade II Body Position Sidelying Comments retraction/ depression with ed for stabilization for upcoming exercises with understanding. scar mob Joint L shld Body Position Sidelying Comments good reponse. Steristrips fell off pre visit today, intact scar. PT-OP-T Assessment and Plan Start: 07/20/20 16:00 Freq: Status: Active Protocol: Document 08/02/20 07:31 SP (Rec: 08/02/20 11:40 SP [id number]) Physical Therapy Assessment Goals 4 Cnc Field Service Engineer Goal (LTG) Pt will present with at least 4/5 left shoulder flexion, abduction, ER and IR strength to allow normal functional use of arm by 10/27/20. LTG Duration 12 weeks 3 Retirement Goal (LTG) Pt will perform progressive HEP with I including postural, ROM, relaxation and strengthening exercises to allow return to previous active lifestyle by 10/27/20. LTG Duration 12 weeks 2 Cnc Field Service Engineer Goal (LTG) Pt will present with AROM flexion, abduction and IR left shoulder equal to the right to allow functional mobility for ADLs and IADLs by 10/27/20. LTG Duration 12 weeks 1 Impairment QuickDASH reflects 50% impairment Retirement Goal (LTG) Pt will present with an improved QuickDASH score to reflect no more than 10% impairment to allow return to previous active lifestyle by . LTG Duration 12 weeks Assessment Summary Assessment Pt responded well to last tx and manual today. Provided HEP review with education on scapular PNF stabilization. Initiated supine L shld abd and ER using dowel and sidelying open bookwithin painfree range, good understanding. Cued scap depression w/ mirror feedback during seated TS rotation awareness and improved self corrections. Physical Therapy Plan Frequency and Duration Frequency of Treatment 2x/Week Duration of Treatment 12 weeks Plan of Care Start Date 07/27/20 Plan of Care End Date 10/29/20 Therapeutic Interventions Therapeutic Interventions Balance Training,Canalithic Repositioning,Coordination Training,Gait Training,Home Exercise Program,Joint Mobilizations,Manual Therapy, Neuromuscular Re-education, Patient/Caregiver Education, Self-Care/Home Management, Sensory Integration,Soft Tissue Mobilization,Taping, Therapeutic Activities, Therapeutic Exercises Modalities Cold Pack/Ice Massage,Hot Packs Next Visit Focus/Plan Next Note Type Treatment Note Next Visit Plan Assess response to HEP: supine FF, ABD, ER using dowel, seated TS rotation.
--- NOTE | 2020-08-02 08:15 | PT.OTN ---
Current Diagnoses Primary osteoarthritis, left shoulder (08/02/20) Pain in left shoulder (08/02/20) Incomplete rotator cuff tear or rupture of left shoulder, not specified as traumatic (08/02/20) Physical Therapy Treatment Note PT-OP-A Visit Information Start: 07/20/20 16:00 Freq: Status: Active Protocol: Document 08/02/20 07:31 SP (Rec: 08/02/20 11:40 SP [id number]) Out-Patient Physical Therapy Visit Information Visit Information Visit Type Treatment Note Visit Note [place] out [place] [facility] Visit Start Time 07:31 Visit Stop Time 08:15 Total Visit Minutes 44 Visit Number 3 Number of MAST MAKER Visits 1 Evaluation Information Evaluation Date 07/27/20 Precautions Precautions Post-op left shoulder arthroscopic decompression and protocol scanned into EMR though it is vague and there is no op report yet. Pt states that surgeon told him he can be out of the sling 3 days post-op which is 07/28/20. He was told to wear the sling for comfort. PT-OP-B Current Condition Start: 07/20/20 16:00 Freq: Status: Active Protocol: Document 07/27/20 07:25 MB (Rec: 07/27/20 07:42 MB [id number]) Current Condition History of Current Condition Onset Date 07/25/20 Current Complaints Unable to use left arm, pain is improved post-op History of Current Condition Pt returned to Dr. Harris's office and then went to Dr. Miranda's office. He was found to have a tear, bone spurs and compression of a sac. He had surgery two days ago on 07/25/20 and underwent decompression including shaving the bone spurs and cleaning up arthritis. PT has not yet received op report. PT did receive vague post-op guidelines. Pt was told by surgeon that his arm is great and he can be out of the sling 3 days post-op, which is 07/28. Pt reports 3/10 anterior left shoulder pain. From initial eval with PT before surgery: Pt reports that a couple of months ago, he was moving some furniture in his house and then he experienced sharp pain at the top of his left shoulder. He has a lump on the top of his shoulder. Pt reports the pain is not too bad. He notices pain when he is resting. He is waking up at night and losing about an hour or two of sleep. He has trouble lifting his arm up out to the side. The further he lifts his left arm to the side , the more pain he has. Pt underwent left arthroscopic decompression and debridement on From initial eval before surgery: His doctor told him he needs a MRI in the surgical window. He is in PT to try it before getting a MRI . 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 He is playing T ball with his grandson. PMH: HTN, gout, HLD Treatment Goals Patient/Caregiver Goals To get back to use of his arm PT-OP-C Subjective Start: 07/20/20 16:00 Freq: Status: Active Protocol: Document 08/02/20 07:31 SP (Rec: 08/02/20 11:40 SP [id number]) OP-PT Subjective Patient Comments Patient Comments Pt states getting better every day. Not really having pain. Patient Reported Progress Improving PT-OP-K Range of Motion Start: 07/20/20 16:00 Freq: Status: Active Protocol: Document 07/27/20 07:25 MB (Rec: 07/27/20 10:12 MB [id number]) Shoulder Goniometric Range of Motion Shoulder Left Shoulder ROM WFL No Comments Active left shoulder flexion and abduction no more than 20 deg when taking off sling Passive abduction to 63 deg and ER 20 deg and IR 10 deg in supine Right Shoulder ROM WFL Yes Testing Position Standing Flexion 153 Abduction 154 Internal Rotation Behind Back (text) T10 Comments Passive ER and IR with shoulder in 90/90 in supine normal Wrist Goniometric Range of Motion ROM Limitations Comments Reduced wrist extension B that appears to be degenerative in nature PT-OP-M Strength Start: 07/20/20 16:00 Freq: Status: Active Protocol: Document 07/27/20 07:25 MB (Rec: 07/27/20 10:12 MB [id number]) Shoulder Strength Shoulder Manual Muscle Testing Right Flexion 5 Normal Abduction (C5) 5 Normal External Rotation 5 Normal Internal Rotation 5 Normal Left Comments Deferred MMT d/t surgery two days ago Elbow/Forearm Strength Elbow and Forearm Manual Muscle Testing Right Flexion (C6) 5 Normal Extension (C7) 5 Normal Pronation 5 Normal Supination 5 Normal Left Comments Deferred MMT s/p left shoulder surgery 2 days ago Wrist Strength Wrist Manual Muscle Testing Right Comments In reduced range Left Flexion (C7) 5 Normal Extension (C6) 5 Normal Comments In reduced range PT-OP-Q Treatments Start: 07/20/20 16:00 Freq: Status: Active Protocol: Document 08/02/20 07:31 SP (Rec: 08/02/20 11:40 SP [id number]) Therapeutic Exercises Supine Exercises cane ER w/RUE support Side left Comments 10 reps slowly, head and neck supported cane abd w/ RUE support Supine Exercise Name added to HEP Side left Comments 10 reps slowly, head and neck supported- pain free range Cane flexion with RUE support Side bilateral Comments 10 reps slowly, head and neck supported Sidelying Exercises open book Sidelying Exercise Name hand on head (in PT only) Side left Comments good feedback response no pain , less stiffness in mid back and shld complex AAROM ABD Sidelying Exercise Name 90> 110* ( PT only) Side left Comments pain free range Sitting Exercises Thoracic rotation with breathing Side bilateral Comments Breathing end range Standing Exercises Pendulums Standing Exercise Name flex, ext, abd, CW, CCW Side left Comments cued move hips and arm follows , forward and backwards Manual Therapy Treatment Soft Tissue Mobilization UT, pec Body Location L Mobilization Type Rolling,Strumming,Sustained Pressure,Other Intensity/Depth Moderate Body Position Sidelying Comments good response, initiated MWM UT head turn nod using theracane, review standing racquetball at wall post scap musculature. Joint Mobilizations scapular PNF Joint L Grade II Body Position Sidelying Comments retraction/ depression with ed for stabilization for upcoming exercises with understanding. scar mob Joint L shld Body Position Sidelying Comments good reponse. Steristrips fell off pre visit today, intact scar. 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 LTG Duration 12 weeks 3 Electric Screw Driver Operator Goal (LTG) Pt will perform progressive HEP with I including postural, ROM, relaxation and strengthening exercises to allow return to previous active lifestyle by 10/27/20. LTG Duration 12 weeks 2 Custodial Goal (LTG) Pt will present with AROM flexion, abduction and IR left shoulder equal to the right to allow functional mobility for ADLs and IADLs by 10/27/20. LTG Duration 12 weeks 1 Impairment QuickDASH reflects 50% impairment Custodial Goal (LTG) Pt will present with an improved QuickDASH score to reflect no more than 10% impairment to allow return to previous active lifestyle by . LTG Duration 12 weeks Assessment Summary Assessment Pt responded well to last tx and manual today. Provided HEP review with education on scapular PNF stabilization. Initiated supine L shld abd and ER using dowel and sidelying open bookwithin painfree range, good understanding. Cued scap depression w/ mirror feedback during seated TS rotation awareness and improved self corrections. Physical Therapy Plan Frequency and Duration Frequency of Treatment 2x/Week Duration of Treatment 12 weeks Plan of Care Start Date 07/27/20 Plan of Care End Date 10/29/20 Therapeutic Interventions Therapeutic Interventions Balance Training,Canalithic Repositioning,Coordination Training,Gait Training,Home Exercise Program,Joint Mobilizations,Manual Therapy, Neuromuscular Re-education, Patient/Caregiver Education, Self-Care/Home Management, Sensory Integration,Soft Tissue Mobilization,Taping, Therapeutic Activities, Therapeutic Exercises Modalities Cold Pack/Ice Massage,Hot Packs Next Visit Focus/Plan Next Note Type Treatment Note Next Visit Plan Assess response to HEP: supine FF, ABD, ER using dowel, seated TS rotation.
--- NOTE | 2020-08-07 08:14 | PT.OTN ---
Current Diagnoses Primary osteoarthritis, left shoulder (08/07/20) Pain in left shoulder (08/07/20) Incomplete rotator cuff tear or rupture of left shoulder, not specified as traumatic (08/07/20) Physical Therapy Treatment Note PT-OP-A Visit Information Start: 07/20/20 16:00 Freq: Status: Active Protocol: Document 08/07/20 07:30 MB (Rec: 08/07/20 08:13 MB [id number]) Out-Patient Physical Therapy Visit Information Visit Information Visit Type Treatment Note Visit Note [place] of [place] [facility] Visit Start Time 07:30 Visit Stop Time 08:40 Total Visit Minutes 40 Visit Number 4 Precautions Precautions Post-op left shoulder arthroscopic decompression and protocol scanned into EMR though it is vague and there is no op report yet. Pt states that surgeon told him he can be out of the sling 3 days post-op which is 07/28/20. He was told to wear the sling for comfort. PT-OP-B Current Condition Start: 07/20/20 16:00 Freq: Status: Active Protocol: Document 07/27/20 07:25 MB (Rec: 07/27/20 07:42 MB [id number]) Current Condition History of Current Condition Onset Date 07/25/20 Current Complaints Unable to use left arm, pain is improved post-op History of Current Condition Pt returned to Dr. Harris's office and then went to Dr. Miranda's office. He was found to have a tear, bone spurs and compression of a sac. He had surgery two days ago on 07/25/20 and underwent decompression including shaving the bone spurs and cleaning up arthritis. PT has not yet received op report. PT did receive vague post-op guidelines. Pt was told by surgeon that his arm is great and he can be out of the sling 3 days post-op, which is 07/28. Pt reports 3/10 anterior left shoulder pain. From initial eval with PT before surgery: Pt reports that a couple of months ago, he was moving some furniture in his house and then he experienced sharp pain at the top of his left shoulder. He has a lump on the top of his shoulder. Pt reports the pain is not too bad. He notices pain when he is resting. He is waking up at night and losing about an hour or two of sleep. He has trouble lifting his arm up out to the side. The further he lifts his left arm to the side , the more pain he has. Pt underwent left arthroscopic decompression and debridement on From initial eval before surgery: His doctor told him he needs a MRI in the surgical window. He is in PT to try it before getting a MRI . 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 He is playing T ball with his grandson. PMH: HTN, gout, HLD Treatment Goals Patient/Caregiver Goals To get back to use of his arm PT-OP-C Subjective Start: 07/20/20 16:00 Freq: Status: Active Protocol: Document 08/07/20 07:30 MB (Rec: 08/07/20 08:13 MB [id number]) OP-PT Subjective Patient Comments Patient Comments Pt states that he is doing good. He has been sleeping in the bed for a week. PT-OP-K Range of Motion Start: 07/20/20 16:00 Freq: Status: Active Protocol: Document 07/27/20 07:25 MB (Rec: 07/27/20 10:12 MB [id number]) Shoulder Goniometric Range of Motion Shoulder Left Shoulder ROM WFL No Comments Active left shoulder flexion and abduction no more than 20 deg when taking off sling Passive abduction to 63 deg and ER 20 deg and IR 10 deg in supine Right Shoulder ROM WFL Yes Testing Position Standing Flexion 153 Abduction 154 Internal Rotation Behind Back (text) T10 Comments Passive ER and IR with shoulder in 90/90 in supine normal Wrist Goniometric Range of Motion ROM Limitations Comments Reduced wrist extension B that appears to be degenerative in nature PT-OP-M Strength Start: 07/20/20 16:00 Freq: Status: Active Protocol: Document 07/27/20 07:25 MB (Rec: 07/27/20 10:12 MB [id number]) Shoulder Strength Shoulder Manual Muscle Testing Right Flexion 5 Normal Abduction (C5) 5 Normal External Rotation 5 Normal Internal Rotation 5 Normal Left Comments Deferred MMT d/t surgery two days ago Elbow/Forearm Strength Elbow and Forearm Manual Muscle Testing Right Flexion (C6) 5 Normal Extension (C7) 5 Normal Pronation 5 Normal Supination 5 Normal Left Comments Deferred MMT s/p left shoulder surgery 2 days ago Wrist Strength Wrist Manual Muscle Testing Right Comments In reduced range Left Flexion (C7) 5 Normal Extension (C6) 5 Normal Comments In reduced range PT-OP-Q Treatments Start: 07/20/20 16:00 Freq: Status: Active Protocol: Document 08/07/20 07:30 MB (Rec: 08/07/20 08:13 MB [id number]) Therapeutic Exercises Supine Exercises Posterior capsule stretch Side bilateral Equipment Used Purple pool noodle Comments 2 reps each, 20 sec hold Active ROM over pool noodle Supine Exercise Name Dynamic and static pect stretch, Ts, half Xs, flexion Side bilateral Equipment Used Purple pool noodle cane ER w/RUE support Supine Exercise Name Over purple pool noodle Side left Equipment Used Purple pool noodle, cane Comments 10 reps slowly cane abd w/ RUE support Supine Exercise Name Over purple pool noodle Side left Equipment Used Pool noodle and cane Comments 10 reps Cane flexion with RUE support Supine Exercise Name Over purple pool noodle Side bilateral Equipment Used Pool noodle and cane Comments 10 reps Manual Therapy Treatment Other Other Manual Treatments Pt prone: B scapular mobs grade III, PA thoracic mobs grade III with pt performing breathing with mobilization, grade III PA mobs left shoulder in prone at GH joint. Positional release left pect in prone. Self-Care/Home Management Treatment Education Other Education PT writes out notes for pt to take to Dr. Miranda: given pt is 2 weeks post-op, have been careful and doing tasks to tolerance and have progressed to AROM in hook lying to tolerable range. Asked surgeon to write out hard precautions for PT and when can start UBE and gentle strengthening in hook lying PT-OP-R Modalities Start: 08/02/20 11:44 Freq: Status: Active Protocol: Document 08/02/20 07:31 SP (Rec: 08/02/20 11:47 SP [id number]) Hot Pack/Cold Pack Treatment cryocuff Location L shld Patient Position Sitting Treatment Duration (minutes) 8 Patient Tolerance Good PT-OP-T Assessment and Plan Start: 07/20/20 16:00 Freq: Status: Active Protocol: Document 08/07/20 07:30 MB (Rec: 08/07/20 08:13 MB [id number]) Physical Therapy Assessment Rehab Potential Rehabilitation Potential Good Evaluation Complexity Number of Personal Factors/Comorbidities 1-2 Number of Body Systems Impaired 1-2 Clinical Presentation at Evaluation Stable Impairments Impairments Activity Tolerance,Balance, Edema,Functional Activities, Functional Mobility,Integument ,Pain,Posture,ROM,Soft Tissue Mobility,Strength,Transfers Other Impairments Personal factors include post- op and unable to drive currently. Body systems affected include musculoskeletal. His clinical presentation is stable post-op . Other Concerns Fall Risk Yes Goals 4 Fpc Goal (LTG) Pt will present with at least 4/5 left shoulder flexion, abduction, ER and IR strength to allow normal functional use of arm by 10/27/20. LTG Duration 12 weeks 3 Fpc Goal (LTG) Pt will perform progressive HEP with I including postural, ROM, relaxation and strengthening exercises to allow return to previous active lifestyle by 10/27/20. LTG Duration 12 weeks 2 Travel Journalist Goal (LTG) Pt will present with AROM flexion, abduction and IR left shoulder equal to the right to allow functional mobility for ADLs and IADLs by 10/27/20. LTG Duration 12 weeks 1 Impairment QuickDASH reflects 50% impairment Travel Journalist Goal (LTG) Pt will present with an improved QuickDASH score to reflect no more than 10% impairment to allow return to previous active lifestyle by . LTG Duration 12 weeks Assessment Summary Assessment Pt does well with AROM to tolerance while lying over pool noodle today. Reviewed what he can talk with surgeon about on at his first post-op which will be 2 weeks , 1 day post-op. He con't with left pect and thoracic tension. Physical Therapy Plan Frequency and Duration Frequency of Treatment 2x/Week Duration of Treatment 12 weeks Plan of Care Start Date 07/27/20 Plan of Care End Date 10/29/20 Therapeutic Interventions Therapeutic Interventions Balance Training,Canalithic Repositioning,Coordination Training,Gait Training,Home Exercise Program,Joint Mobilizations,Manual Therapy, Neuromuscular Re-education, Patient/Caregiver Education, Self-Care/Home Management, Sensory Integration,Soft Tissue Mobilization,Taping, Therapeutic Activities, Therapeutic Exercises Modalities Cold Pack/Ice Massage,Hot Packs Next Visit Focus/Plan Next Note Type Treatment Note Next Visit Plan Ongoing pect release, review exercises
--- NOTE | 2020-08-10 08:15 | PT.OTN ---
Current Diagnoses Primary osteoarthritis, left shoulder (08/10/20) Pain in left shoulder (08/10/20) Incomplete rotator cuff tear or rupture of left shoulder, not specified as traumatic (08/10/20) Physical Therapy Treatment Note PT-OP-A Visit Information Start: 07/20/20 16:00 Freq: Status: Active Protocol: Document 08/10/20 07:30 MB (Rec: 08/10/20 08:14 MB [id number]) Out-Patient Physical Therapy Visit Information Visit Information Visit Type Treatment Note Visit Note [place] [facility] Visit Start Time 07:30 Visit Stop Time 08:20 Total Visit Minutes 40 Visit Number 5 Precautions Precautions Post-op left shoulder arthroscopic decompression and protocol scanned into EMR though it is vague and there is no op report yet. Pt states that surgeon told him he can be out of the sling 3 days post-op which is 07/28/20. He was told to wear the sling for comfort. PT-OP-B Current Condition Start: 07/20/20 16:00 Freq: Status: Active Protocol: Document 07/27/20 07:25 MB (Rec: 07/27/20 07:42 MB [id number]) Current Condition History of Current Condition Onset Date 07/25/20 Current Complaints Unable to use left arm, pain is improved post-op History of Current Condition Pt returned to Dr. Harris's office and then went to Dr. Miranda's office. He was found to have a tear, bone spurs and compression of a sac. He had surgery two days ago on 07/25/20 and underwent decompression including shaving the bone spurs and cleaning up arthritis. PT has not yet received op report. PT did receive vague post-op guidelines. Pt was told by surgeon that his arm is great and he can be out of the sling 3 days post-op, which is 07/28. Pt reports 3/10 anterior left shoulder pain. From initial eval with PT before surgery: Pt reports that a couple of months ago, he was moving some furniture in his house and then he experienced sharp pain at the top of his left shoulder. He has a lump on the top of his shoulder. Pt reports the pain is not too bad. He notices pain when he is resting. He is waking up at night and losing about an hour or two of sleep. He has trouble lifting his arm up out to the side. The further he lifts his left arm to the side , the more pain he has. Pt underwent left arthroscopic decompression and debridement on From initial eval before surgery: His doctor told him he needs a MRI in the surgical window. He is in PT to try it before getting a MRI . 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 He is playing T ball with his grandson. PMH: HTN, gout, HLD Treatment Goals Patient/Caregiver Goals To get back to use of his arm PT-OP-C Subjective Start: 07/20/20 16:00 Freq: Status: Active Protocol: Document 08/10/20 07:30 MB (Rec: 08/10/20 08:14 MB [id number]) OP-PT Subjective Patient Comments Patient Comments Pt returned to see Dr. Miranda' s PA yesterday. He reports they said 'no' to lifting and to keep on the protocol. His next visit is September 03. PT-OP-K Range of Motion Start: 07/20/20 16:00 Freq: Status: Active Protocol: Document 07/27/20 07:25 MB (Rec: 07/27/20 10:12 MB [id number]) Shoulder Goniometric Range of Motion Shoulder Left Shoulder ROM WFL No Comments Active left shoulder flexion and abduction no more than 20 deg when taking off sling Passive abduction to 63 deg and ER 20 deg and IR 10 deg in supine Right Shoulder ROM WFL Yes Testing Position Standing Flexion 153 Abduction 154 Internal Rotation Behind Back (text) T10 Comments Passive ER and IR with shoulder in 90/90 in supine normal Wrist Goniometric Range of Motion ROM Limitations Comments Reduced wrist extension B that appears to be degenerative in nature PT-OP-M Strength Start: 07/20/20 16:00 Freq: Status: Active Protocol: Document 07/27/20 07:25 MB (Rec: 07/27/20 10:12 MB [id number]) Shoulder Strength Shoulder Manual Muscle Testing Right Flexion 5 Normal Abduction (C5) 5 Normal External Rotation 5 Normal Internal Rotation 5 Normal Left Comments Deferred MMT d/t surgery two days ago Elbow/Forearm Strength Elbow and Forearm Manual Muscle Testing Right Flexion (C6) 5 Normal Extension (C7) 5 Normal Pronation 5 Normal Supination 5 Normal Left Comments Deferred MMT s/p left shoulder surgery 2 days ago Wrist Strength Wrist Manual Muscle Testing Right Comments In reduced range Left Flexion (C7) 5 Normal Extension (C6) 5 Normal Comments In reduced range PT-OP-Q Treatments Start: 07/20/20 16:00 Freq: Status: Active Protocol: Document 08/10/20 07:30 MB (Rec: 08/10/20 08:14 MB [id number]) Therapeutic Exercises Supine Exercises Posterior capsule stretch Comments Verbally reviewed today Active ROM over pool noodle Supine Exercise Name Dynamic and static pect stretch, Ts, half Xs, flexion Side bilateral Equipment Used 4.5 foam roller Standing Exercises Use of racquet ball for self-massage Standing Exercise Name Intrascapular muscles STM and MWM infraspinatus and upper traps Comments B, focus on the left Manual Therapy Treatment Other Other Manual Treatments Pt prone: B scapular mobs grade III, thoracic PA mobs grade III Self-Care/Home Management Treatment Education Other Education Plan to decrease frequency and pt to con't with exercises in setting of no advancement of protocol at this time, pt to return to surgeon 09/03 PT-OP-R Modalities Start: 08/02/20 11:44 Freq: Status: Active Protocol: Document 08/02/20 07:31 SP (Rec: 08/02/20 11:47 SP [id number]) Hot Pack/Cold Pack Treatment cryocuff Location L shld Patient Position Sitting Treatment Duration (minutes) 8 Patient Tolerance Good PT-OP-T Assessment and Plan Start: 07/20/20 16:00 Freq: Status: Active Protocol: Document 08/10/20 07:30 MB (Rec: 08/10/20 08:14 MB [id number]) Physical Therapy Assessment Rehab Potential Rehabilitation Potential Good Evaluation Complexity Number of Personal Factors/Comorbidities 1-2 Number of Body Systems Impaired 1-2 Clinical Presentation at Evaluation Stable Impairments Impairments Activity Tolerance,Balance, Edema,Functional Activities, Functional Mobility,Integument ,Pain,Posture,ROM,Soft Tissue Mobility,Strength,Transfers Other Impairments Personal factors include post- op and unable to drive currently. Body systems affected include musculoskeletal. His clinical presentation is stable post-op . Other Concerns Fall Risk Yes Goals 4 Gas Collection System Operator Goal (LTG) Pt will present with at least 4/5 left shoulder flexion, abduction, ER and IR strength to allow normal functional use of arm by 10/27/20. LTG Duration 12 weeks 3 Gas Collection System Operator Goal (LTG) Pt will perform progressive HEP with I including postural, ROM, relaxation and strengthening exercises to allow return to previous active lifestyle by 10/27/20. LTG Duration 12 weeks 2 [facility] Goal (LTG) Pt will present with AROM flexion, abduction and IR left shoulder equal to the right to allow functional mobility for ADLs and IADLs by 10/27/20. LTG Duration 12 weeks 1 Impairment QuickDASH reflects 50% impairment Gas Collection System Operator Goal (LTG) Pt will present with an improved QuickDASH score to reflect no more than 10% impairment to allow return to previous active lifestyle by . LTG Duration 12 weeks Assessment Summary Assessment Pt returned to the surgeon and was not cleared for any strengthening and so ROM exercises and self-myofascial massage educated. Will decrease frequency currently since pt is doing very well with active movement and exercises and we cannot currently progress him with strengthening: do not wish to use up his PT appointments while cannot progress. PT did ask front office to obtain note from surgeon's office from yesterday. Physical Therapy Plan Frequency and Duration Frequency of Treatment 2x/Week Duration of Treatment 12 weeks Plan of Care Start Date 07/27/20 Plan of Care End Date 10/29/20 Therapeutic Interventions Therapeutic Interventions Balance Training,Canalithic Repositioning,Coordination Training,Gait Training,Home Exercise Program,Joint Mobilizations,Manual Therapy, Neuromuscular Re-education, Patient/Caregiver Education, Self-Care/Home Management, Sensory Integration,Soft Tissue Mobilization,Taping, Therapeutic Activities, Therapeutic Exercises Modalities Cold Pack/Ice Massage,Hot Packs Next Visit Focus/Plan Next Note Type Treatment Note Next Visit Plan Ongoing pect release, review exercises, progress B[place]ko breathing, manual work
--- NOTE | 2020-08-17 08:07 | PT.OTN ---
Current Diagnoses Primary osteoarthritis, left shoulder (08/17/20) Pain in left shoulder (08/17/20) Incomplete rotator cuff tear or rupture of left shoulder, not specified as traumatic (08/17/20) Physical Therapy Treatment Note PT-OP-A Visit Information Start: 07/20/20 16:00 Freq: Status: Active Protocol: Document 08/17/20 07:31 MB (Rec: 08/17/20 08:05 MB [id number]) Out-Patient Physical Therapy Visit Information Visit Information Visit Type Treatment Note Visit Note [place] [facility] Visit Start Time 07:31 Visit Stop Time 08:01 Total Visit Minutes 30 Visit Number 6 Precautions Precautions Post-op left shoulder arthroscopic surgery and guidelines are vague PT-OP-B Current Condition Start: 07/20/20 16:00 Freq: Status: Active Protocol: Document 07/27/20 07:25 MB (Rec: 07/27/20 07:42 MB [id number]) Current Condition History of Current Condition Onset Date 07/25/20 Current Complaints Unable to use left arm, pain is improved post-op History of Current Condition Pt returned to Dr. Harris's office and then went to Dr. Miranda's office. He was found to have a tear, bone spurs and compression of a sac. He had surgery two days ago on 07/25/20 and underwent decompression including shaving the bone spurs and cleaning up arthritis. PT has not yet received op report. PT did receive vague post-op guidelines. Pt was told by surgeon that his arm is great and he can be out of the sling 3 days post-op, which is 07/28. Pt reports 3/10 anterior left shoulder pain. From initial eval with PT before surgery: Pt reports that a couple of months ago, he was moving some furniture in his house and then he experienced sharp pain at the top of his left shoulder. He has a lump on the top of his shoulder. Pt reports the pain is not too bad. He notices pain when he is resting. He is waking up at night and losing about an hour or two of sleep. He has trouble lifting his arm up out to the side. The further he lifts his left arm to the side , the more pain he has. Pt underwent left arthroscopic decompression and debridement on From initial eval before surgery: His doctor told him he needs a MRI in the surgical window. He is in PT to try it before getting a MRI . 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 He is playing T ball with his grandson. PMH: HTN, gout, HLD Treatment Goals Patient/Caregiver Goals To get back to use of his arm PT-OP-C Subjective Start: 07/20/20 16:00 Freq: Status: Active Protocol: Document 08/17/20 07:31 MB (Rec: 08/17/20 08:05 MB [id number]) OP-PT Subjective Patient Comments Patient Comments Pt states that his shoulder is feeling fine. He needs for visit to be shorter today. PT-OP-K Range of Motion Start: 07/20/20 16:00 Freq: Status: Active Protocol: Document 07/27/20 07:25 MB (Rec: 07/27/20 10:12 MB [id number]) Shoulder Goniometric Range of Motion Shoulder Left Shoulder ROM WFL No Comments Active left shoulder flexion and abduction no more than 20 deg when taking off sling Passive abduction to 63 deg and ER 20 deg and IR 10 deg in supine Right Shoulder ROM WFL Yes Testing Position Standing Flexion 153 Abduction 154 Internal Rotation Behind Back (text) T10 Comments Passive ER and IR with shoulder in 90/90 in supine normal Wrist Goniometric Range of Motion ROM Limitations Comments Reduced wrist extension B that appears to be degenerative in nature PT-OP-M Strength Start: 07/20/20 16:00 Freq: Status: Active Protocol: Document 07/27/20 07:25 MB (Rec: 07/27/20 10:12 MB [id number]) Shoulder Strength Shoulder Manual Muscle Testing Right Flexion 5 Normal Abduction (C5) 5 Normal External Rotation 5 Normal Internal Rotation 5 Normal Left Comments Deferred MMT d/t surgery two days ago Elbow/Forearm Strength Elbow and Forearm Manual Muscle Testing Right Flexion (C6) 5 Normal Extension (C7) 5 Normal Pronation 5 Normal Supination 5 Normal Left Comments Deferred MMT s/p left shoulder surgery 2 days ago Wrist Strength Wrist Manual Muscle Testing Right Comments In reduced range Left Flexion (C7) 5 Normal Extension (C6) 5 Normal Comments In reduced range PT-OP-Q Treatments Start: 07/20/20 16:00 Freq: Status: Active Protocol: Document 08/17/20 07:31 MB (Rec: 08/17/20 08:05 MB [id number]) Manual Therapy Treatment Other Other Manual Treatments Pt supine: B pect major release and then further work on left pect minor, SC joint recoil with coordinated breathing from pt, passive movement left shoulder, gentle left rib recoil PT-OP-R Modalities Start: 08/02/20 11:44 Freq: Status: Active Protocol: Document 08/02/20 07:31 SP (Rec: 08/02/20 11:47 SP [id number]) Hot Pack/Cold Pack Treatment cryocuff Location L shld Patient Position Sitting Treatment Duration (minutes) 8 Patient Tolerance Good PT-OP-T Assessment and Plan Start: 07/20/20 16:00 Freq: Status: Active Protocol: Document 08/17/20 07:31 MB (Rec: 08/17/20 08:05 MB [id number]) Physical Therapy Assessment Rehab Potential Rehabilitation Potential Good Evaluation Complexity Number of Personal Factors/Comorbidities 1-2 Number of Body Systems Impaired 1-2 Clinical Presentation at Evaluation Stable Impairments Impairments Activity Tolerance,Balance, Edema,Functional Activities, Functional Mobility,Integument ,Pain,Posture,ROM,Soft Tissue Mobility,Strength,Transfers Other Impairments Personal factors include post- op and unable to drive currently. Body systems affected include musculoskeletal. His clinical presentation is stable post-op . Other Concerns Fall Risk Yes Goals 4 Shelter Goal (LTG) Pt will present with at least 4/5 left shoulder flexion, abduction, ER and IR strength to allow normal functional use of arm by 10/27/20. LTG Duration 12 weeks 3 Residential Glazier Goal (LTG) Pt will perform progressive HEP with I including postural, ROM, relaxation and strengthening exercises to allow return to previous active lifestyle by 10/27/20. LTG Duration 12 weeks 2 Residential [place] Goal (LTG) Pt will present with AROM flexion, abduction and IR left shoulder equal to the right to allow functional mobility for ADLs and IADLs by 10/27/20. LTG Duration 12 weeks 1 Impairment QuickDASH reflects 50% impairment Residential Glazier Goal (LTG) Pt will present with an improved QuickDASH score to reflect no more than 10% impairment to allow return to previous active lifestyle by . LTG Duration 12 weeks Assessment Summary Assessment Pt presents with increased tension left greater than right SC joints, pects and proximal ribs and manual work today improves. Physical Therapy Plan Frequency and Duration Frequency of Treatment 2x/Week Duration of Treatment 12 weeks Plan of Care Start Date 07/27/20 Plan of Care End Date 10/29/20 Therapeutic Interventions Therapeutic Interventions Balance Training,Canalithic Repositioning,Coordination Training,Gait Training,Home Exercise Program,Joint Mobilizations,Manual Therapy, Neuromuscular Re-education, Patient/Caregiver Education, Self-Care/Home Management, Sensory Integration,Soft Tissue Mobilization,Taping, Therapeutic Activities, Therapeutic Exercises Modalities Cold Pack/Ice Massage,Hot Packs Next Visit Focus/Plan Next Note Type Treatment Note Next Visit Plan Ongoing manual work, review exercises, progress Buteyko breathing
--- NOTE | 2020-08-31 08:07 | PT.OTN ---
Current Diagnoses Primary osteoarthritis, left shoulder (08/31/20) Pain in left shoulder (08/31/20) Incomplete rotator cuff tear or rupture of left shoulder, not specified as traumatic (08/31/20) Physical Therapy Treatment Note PT-OP-A Visit Information Start: 07/20/20 16:00 Freq: Status: Active Protocol: Document 08/31/20 07:34 MB (Rec: 08/31/20 08:07 MB [id number]) Out-Patient Physical Therapy Visit Information Visit Information Visit Type Treatment Note Visit Note [place] [facility] Visit Start Time 07:34 Visit Stop Time 08:15 Total Visit Minutes 39 Visit Number 7 Precautions Precautions Post-op left shoulder arthroscopic surgery and guidelines are vague PT-OP-B Current Condition Start: 07/20/20 16:00 Freq: Status: Active Protocol: Document 07/27/20 07:25 MB (Rec: 07/27/20 07:42 MB [id number]) Current Condition History of Current Condition Onset Date 07/25/20 Current Complaints Unable to use left arm, pain is improved post-op History of Current Condition Pt returned to Dr. Harris's office and then went to Dr. Miranda's office. He was found to have a tear, bone spurs and compression of a sac. He had surgery two days ago on 07/25/20 and underwent decompression including shaving the bone spurs and cleaning up arthritis. PT has not yet received op report. PT did receive vague post-op guidelines. Pt was told by surgeon that his arm is great and he can be out of the sling 3 days post-op, which is 07/28. Pt reports 3/10 anterior left shoulder pain. From initial eval with PT before surgery: Pt reports that a couple of months ago, he was moving some furniture in his house and then he experienced sharp pain at the top of his left shoulder. He has a lump on the top of his shoulder. Pt reports the pain is not too bad. He notices pain when he is resting. He is waking up at night and losing about an hour or two of sleep. He has trouble lifting his arm up out to the side. The further he lifts his left arm to the side , the more pain he has. Pt underwent left arthroscopic decompression and debridement on From initial eval before surgery: His doctor told him he needs a MRI in the surgical window. He is in PT to try it before getting a MRI . 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 He is playing T ball with his grandson. PMH: HTN, gout, HLD Treatment Goals Patient/Caregiver Goals To get back to use of his arm PT-OP-C Subjective Start: 07/20/20 16:00 Freq: Status: Active Protocol: Document 08/31/20 07:34 MB (Rec: 08/31/20 08:07 MB [id number]) OP-PT Subjective Patient Comments Patient Comments Pt states that he is doing well, he has no pain and his left shoulder is feeling normal. He sees surgeon on Thursday. He is performing ROM exercises and thoracic mobility over the foam roller. He needs a short treatment today. PT-OP-K Range of Motion Start: 07/20/20 16:00 Freq: Status: Active Protocol: Document 07/27/20 07:25 MB (Rec: 07/27/20 10:12 MB [id number]) Shoulder Goniometric Range of Motion Shoulder Left Shoulder ROM WFL No Comments Active left shoulder flexion and abduction no more than 20 deg when taking off sling Passive abduction to 63 deg and ER 20 deg and IR 10 deg in supine Right Shoulder ROM WFL Yes Testing Position Standing Flexion 153 Abduction 154 Internal Rotation Behind Back (text) T10 Comments Passive ER and IR with shoulder in 90/90 in supine normal Wrist Goniometric Range of Motion ROM Limitations Comments Reduced wrist extension B that appears to be degenerative in nature PT-OP-M Strength Start: 07/20/20 16:00 Freq: Status: Active Protocol: Document 07/27/20 07:25 MB (Rec: 07/27/20 10:12 MB [id number]) Shoulder Strength Shoulder Manual Muscle Testing Right Flexion 5 Normal Abduction (C5) 5 Normal External Rotation 5 Normal Internal Rotation 5 Normal Left Comments Deferred MMT d/t surgery two days ago Elbow/Forearm Strength Elbow and Forearm Manual Muscle Testing Right Flexion (C6) 5 Normal Extension (C7) 5 Normal Pronation 5 Normal Supination 5 Normal Left Comments Deferred MMT s/p left shoulder surgery 2 days ago Wrist Strength Wrist Manual Muscle Testing Right Comments In reduced range Left Flexion (C7) 5 Normal Extension (C6) 5 Normal Comments In reduced range PT-OP-Q Treatments Start: 07/20/20 16:00 Freq: Status: Active Protocol: Document 08/31/20 07:34 MB (Rec: 08/31/20 08:07 MB [id number]) Therapeutic Exercises Supine Exercises Active ROM over pool noodle Supine Exercise Name 6 foam roller today Side bilateral Comments AROM flexion, abduction, ER, thoracic mobility, pect stretch Manual Therapy Treatment Other Other Manual Treatments Pt prone: left greater than right scapular mobs all directions, PA recoil with coordinated breathing over thoracic spine; pt supine: B pect major release and grade II SC mobs PT-OP-R Modalities Start: 08/02/20 11:44 Freq: Status: Active Protocol: Document 08/02/20 07:31 SP (Rec: 08/02/20 11:47 SP [id number]) Hot Pack/Cold Pack Treatment cryocuff Location L shld Patient Position Sitting Treatment Duration (minutes) 8 Patient Tolerance Good PT-OP-T Assessment and Plan Start: 07/20/20 16:00 Freq: Status: Active Protocol: Document 08/31/20 07:34 MB (Rec: 08/31/20 08:07 MB [id number]) Physical Therapy Assessment Rehab Potential Rehabilitation Potential Good Evaluation Complexity Number of Personal Factors/Comorbidities 1-2 Number of Body Systems Impaired 1-2 Clinical Presentation at Evaluation Stable Impairments Impairments Activity Tolerance,Balance, Edema,Functional Activities, Functional Mobility,Integument ,Pain,Posture,ROM,Soft Tissue Mobility,Strength,Transfers Other Impairments Personal factors include post- op and unable to drive currently. Body systems affected include musculoskeletal. His clinical presentation is stable post-op . Other Concerns Fall Risk Yes Goals 4 Playground Monitor Goal (LTG) Pt will present with at least 4/5 left shoulder flexion, abduction, ER and IR strength to allow normal functional use of arm by 10/27/20. LTG Duration 12 weeks 3 Playground Monitor Goal (LTG) Pt will perform progressive HEP with I including postural, ROM, relaxation and strengthening exercises to allow return to previous active lifestyle by 10/27/20. LTG Duration 12 weeks 2 Playground Monitor Goal (LTG) Pt will present with AROM flexion, abduction and IR left shoulder equal to the right to allow functional mobility for ADLs and IADLs by 10/27/20. LTG Duration 12 weeks 1 Impairment QuickDASH reflects 50% impairment Snf Goal (LTG) Pt will present with an improved QuickDASH score to reflect no more than 10% impairment to allow return to previous active lifestyle by . LTG Duration 12 weeks Assessment Summary Assessment Pt returns to the surgeon on Thursday and will ask about getting updated protocol/ clearance to start strengthening to tolerance. He con't to report feeling much better and performing HEP. If strengthening is not allowed, may consider cancelling the next two weeks appointments until he can be progressed per surgeon clearance. Physical Therapy Plan Frequency and Duration Frequency of Treatment 2x/Week Duration of Treatment 12 weeks Plan of Care Start Date 07/27/20 Plan of Care End Date 10/29/20 Therapeutic Interventions Therapeutic Interventions Balance Training,Canalithic Repositioning,Coordination Training,Gait Training,Home Exercise Program,Joint Mobilizations,Manual Therapy, Neuromuscular Re-education, Patient/Caregiver Education, Self-Care/Home Management, Sensory Integration,Soft Tissue Mobilization,Taping, Therapeutic Activities, Therapeutic Exercises Modalities Cold Pack/Ice Massage,Hot Packs Next Visit Focus/Plan Next Note Type Treatment Note Next Visit Plan Ongoing manual work, review exercises, progress Buteyko breathing
--- NOTE | 2020-09-21 08:14 | PT.OTN ---
Current Diagnoses Primary osteoarthritis, left shoulder (09/21/20) Pain in left shoulder (09/21/20) Incomplete rotator cuff tear or rupture of left shoulder, not specified as traumatic (09/21/20) Physical Therapy Treatment Note PT-OP-A Visit Information Start: 07/20/20 16:00 Freq: Status: Active Protocol: Document 09/21/20 07:32 MB (Rec: 09/21/20 08:11 MB [id number]) Out-Patient Physical Therapy Visit Information Visit Information Visit Type Treatment Note Visit Note [place] out of state [place] Visit Start Time 07:32 Visit Stop Time 08:10 Total Visit Minutes 38 Visit Number 8 Precautions Precautions Post-op left shoulder arthroscopic surgery 07/25/20 and new guidelines in EMR and reviewed 09/21/20 PT-OP-B Current Condition Start: 07/20/20 16:00 Freq: Status: Active Protocol: Document 07/27/20 07:25 MB (Rec: 07/27/20 07:42 MB [id number]) Current Condition History of Current Condition Onset Date 07/25/20 Current Complaints Unable to use left arm, pain is improved post-op History of Current Condition Pt returned to Dr. Harris's office and then went to Dr. Miranda's office. He was found to have a tear, bone spurs and compression of a sac. He had surgery two days ago on 07/25/20 and underwent decompression including shaving the bone spurs and cleaning up arthritis. PT has not yet received op report. PT did receive vague post-op guidelines. Pt was told by surgeon that his arm is great and he can be out of the sling 3 days post-op, which is 07/28. Pt reports 3/10 anterior left shoulder pain. From initial eval with PT before surgery: Pt reports that a couple of months ago, he was moving some furniture in his house and then he experienced sharp pain at the top of his left shoulder. He has a lump on the top of his shoulder. Pt reports the pain is not too bad. He notices pain when he is resting. He is waking up at night and losing about an hour or two of sleep. He has trouble lifting his arm up out to the side. The further he lifts his left arm to the side , the more pain he has. Pt underwent left arthroscopic decompression and debridement on From initial eval before surgery: His doctor told him he needs a MRI in the surgical window. He is in PT to try it before getting a MRI . 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 He is playing T ball with his grandson. PMH: HTN, gout, HLD Treatment Goals Patient/Caregiver Goals To get back to use of his arm PT-OP-C Subjective Start: 07/20/20 16:00 Freq: Status: Active Protocol: Document 09/21/20 07:32 MB (Rec: 09/21/20 08:11 MB [id number]) OP-PT Subjective Patient Comments Patient Comments Pt states that his appointment with Dr. Miranda went well. He was told that he can start lifting weights but that he needs to start light and then work up. PT-OP-K Range of Motion Start: 07/20/20 16:00 Freq: Status: Active Protocol: Document 07/27/20 07:25 MB (Rec: 07/27/20 10:12 MB [id number]) Shoulder Goniometric Range of Motion Shoulder Left Shoulder ROM WFL No Comments Active left shoulder flexion and abduction no more than 20 deg when taking off sling Passive abduction to 63 deg and ER 20 deg and IR 10 deg in supine Right Shoulder ROM WFL Yes Testing Position Standing Flexion 153 Abduction 154 Internal Rotation Behind Back (text) T10 Comments Passive ER and IR with shoulder in 90/90 in supine normal Wrist Goniometric Range of Motion ROM Limitations Comments Reduced wrist extension B that appears to be degenerative in nature PT-OP-M Strength Start: 07/20/20 16:00 Freq: Status: Active Protocol: Document 07/27/20 07:25 MB (Rec: 07/27/20 10:12 MB [id number]) Shoulder Strength Shoulder Manual Muscle Testing Right Flexion 5 Normal Abduction (C5) 5 Normal External Rotation 5 Normal Internal Rotation 5 Normal Left Comments Deferred MMT d/t surgery two days ago Elbow/Forearm Strength Elbow and Forearm Manual Muscle Testing Right Flexion (C6) 5 Normal Extension (C7) 5 Normal Pronation 5 Normal Supination 5 Normal Left Comments Deferred MMT s/p left shoulder surgery 2 days ago Wrist Strength Wrist Manual Muscle Testing Right Comments In reduced range Left Flexion (C7) 5 Normal Extension (C6) 5 Normal Comments In reduced range PT-OP-Q Treatments Start: 07/20/20 16:00 Freq: Status: Active Protocol: Document 09/21/20 07:32 MB (Rec: 09/21/20 08:11 MB [id number]) Cardio Equipment Upper Body Ergometer (UBE) Duration (Minutes) 12 Other 1' forward and 1' backward Therapeutic Exercises Supine Exercises Shoulder ER with band Side bilateral Equipment Used Level 1 band, foam roller Comments 10 reps slowly Sidelying Exercises Open book with elbows bent for pects, rib breathing Side bilateral Comments Cues to slow down, breathe in and out of nose and move ribs Standing Exercises Wall crawls Side left Comments Walking fingers up into flexion and abduction Active shoulder abduction and flexion Side bilateral Comments Shoulder and abduction x10 reps actively with cues for posture IR with towel Side left Comments Resisted isometric top of range Manual Therapy Treatment Other Other Manual Treatments Pt prone: left scapular mobs and PA mobs at joint line with left shoulder in ER and IR PT-OP-R Modalities Start: 08/02/20 11:44 Freq: Status: Active Protocol: Document 08/02/20 07:31 SP (Rec: 08/02/20 11:47 SP [id number]) Hot Pack/Cold Pack Treatment cryocuff Location L shld Patient Position Sitting Treatment Duration (minutes) 8 Patient Tolerance Good PT-OP-T Assessment and Plan Start: 07/20/20 16:00 Freq: Status: Active Protocol: Document 09/21/20 07:32 MB (Rec: 09/21/20 08:11 MB [id number]) Physical Therapy Assessment Rehab Potential Rehabilitation Potential Good Evaluation Complexity Number of Personal Factors/Comorbidities 1-2 Number of Body Systems Impaired 1-2 Clinical Presentation at Evaluation Stable Impairments Impairments Activity Tolerance,Balance, Edema,Functional Activities, Functional Mobility,Integument ,Pain,Posture,ROM,Soft Tissue Mobility,Strength,Transfers Other Impairments Personal factors include post- op and unable to drive currently. Body systems affected include musculoskeletal. His clinical presentation is stable post-op . Other Concerns Fall Risk Yes Goals 4 Jail Goal (LTG) Pt will present with at least 4/5 left shoulder flexion, abduction, ER and IR strength to allow normal functional use of arm by 10/27/20. LTG Duration 12 weeks 3 Jail Goal (LTG) Pt will perform progressive HEP with I including postural, ROM, relaxation and strengthening exercises to allow return to previous active lifestyle by 10/27/20. LTG Duration 12 weeks 2 Loan Officer Goal (LTG) Pt will present with AROM flexion, abduction and IR left shoulder equal to the right to allow functional mobility for ADLs and IADLs by 10/27/20. LTG Duration 12 weeks 1 Impairment QuickDASH reflects 50% impairment Jail Goal (LTG) Pt will present with an improved QuickDASH score to reflect no more than 10% impairment to allow return to previous active lifestyle by . LTG Duration 12 weeks Assessment Summary Assessment Progressed AROM and strengthening today, con't progression. Physical Therapy Plan Frequency and Duration Frequency of Treatment 2x/Week Duration of Treatment 12 weeks Plan of Care Start Date 07/27/20 Plan of Care End Date 10/29/20 Therapeutic Interventions Therapeutic Interventions Balance Training,Canalithic Repositioning,Coordination Training,Gait Training,Home Exercise Program,Joint Mobilizations,Manual Therapy, Neuromuscular Re-education, Patient/Caregiver Education, Self-Care/Home Management, Sensory Integration,Soft Tissue Mobilization,Taping, Therapeutic Activities, Therapeutic Exercises Modalities Cold Pack/Ice Massage,Hot Packs Next Visit Focus/Plan Next Note Type Treatment Note Next Visit Plan Progressive strengthening for shoulder--con't UBE and theraband strengthening over foam roller
--- NOTE | 2020-10-10 16:38 | PT.OPDS ---
Current Diagnoses Primary osteoarthritis, left shoulder (09/21/20) Pain in left shoulder (09/21/20) Incomplete rotator cuff tear or rupture of left shoulder, not specified as traumatic (09/21/20) Visit Care Team Role Provider Type Benigno Harris MD Primary Care Provider Physician Specialty: Internal Medicine Address: [address] [place] [address], [address], [place], [address] Email: [email or web address] Ramon Miranda MD Attending Provider Physician Referring Provider Specialty: Orthopedic Surgery Address: [address] [place] [address], [address] Email: [email or web address] Visit Number Visit Number 8 Discharge Summary PT-OP-B Current Condition Start: 07/20/20 16:00 Freq: Status: Active Protocol: Document 07/27/20 07:25 MB (Rec: 07/27/20 07:42 MB [id number]) Current Condition History of Current Condition Onset Date 07/25/20 Current Complaints Unable to use left arm, pain is improved post-op History of Current Condition Pt returned to Dr. Harris's office and then went to Dr. Miranda's office. He was found to have a tear, bone spurs and compression of a sac. He had surgery two days ago on 07/25/20 and underwent decompression including shaving the bone spurs and cleaning up arthritis. PT has not yet received op report. PT did receive vague post-op guidelines. Pt was told by surgeon that his arm is great and he can be out of the sling 3 days post-op, which is 07/28. Pt reports 3/10 anterior left shoulder pain. From initial eval with PT before surgery: Pt reports that a couple of months ago, he was moving some furniture in his house and then he experienced sharp pain at the top of his left shoulder. He has a lump on the top of his shoulder. Pt reports the pain is not too bad. He notices pain when he is resting. He is waking up at night and losing about an hour or two of sleep. He has trouble lifting his arm up out to the side. The further he lifts his left arm to the side , the more pain he has. Pt underwent left arthroscopic decompression and debridement on From initial eval before surgery: His doctor told him he needs a MRI in the surgical window. He is in PT to try it before getting a MRI . 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 He is playing T ball with his grandson. PMH: HTN, gout, HLD Treatment Goals Patient/Caregiver Goals To get back to use of his arm PT-OP-C Subjective Start: 07/20/20 16:00 Freq: Status: Active Protocol: Document 09/21/20 07:32 MB (Rec: 09/21/20 08:11 MB [id number]) OP-PT Subjective Patient Comments Patient Comments Pt states that his appointment with Dr. Miranda went well. He was told that he can start lifting weights but that he needs to start light and then work up. PT-OP-K Range of Motion Start: 07/20/20 16:00 Freq: Status: Active Protocol: Document 07/27/20 07:25 MB (Rec: 07/27/20 10:12 MB [id number]) Shoulder Goniometric Range of Motion Shoulder Left Shoulder ROM WFL No Comments Active left shoulder flexion and abduction no more than 20 deg when taking off sling Passive abduction to 63 deg and ER 20 deg and IR 10 deg in supine Right Shoulder ROM WFL Yes Testing Position Standing Flexion 153 Abduction 154 Internal Rotation Behind Back (text) T10 Comments Passive ER and IR with shoulder in 90/90 in supine normal Wrist Goniometric Range of Motion ROM Limitations Comments Reduced wrist extension B that appears to be degenerative in nature PT-OP-M Strength Start: 07/20/20 16:00 Freq: Status: Active Protocol: Document 07/27/20 07:25 MB (Rec: 07/27/20 10:12 MB [id number]) Shoulder Strength Shoulder Manual Muscle Testing Right Flexion 5 Normal Abduction (C5) 5 Normal External Rotation 5 Normal Internal Rotation 5 Normal Left Comments Deferred MMT d/t surgery two days ago Elbow/Forearm Strength Elbow and Forearm Manual Muscle Testing Right Flexion (C6) 5 Normal Extension (C7) 5 Normal Pronation 5 Normal Supination 5 Normal Left Comments Deferred MMT s/p left shoulder surgery 2 days ago Wrist Strength Wrist Manual Muscle Testing Right Comments In reduced range Left Flexion (C7) 5 Normal Extension (C6) 5 Normal Comments In reduced range PT-OP-T Assessment and Plan Start: 07/20/20 16:00 Freq: Status: Active Protocol: Document 10/10/20 16:37 MB (Rec: 10/10/20 16:38 MB [id number]) Physical Therapy Plan Discharge Physical Therapy Discharge Reasons Patient Request Discharge Comments Pt called to cancel all appointments stating that his shoulder is better and he no longer needs PT. Will d/c PT.
== END 2020-10-11 08:40 | disposition home or self-care (01) ==
LOC: PHYS 07:30
PROVIDERS: PCP Student in an Organized Health Care Education/Training Program; Referring Provider Orthopaedic Surgery; Visit Provider Orthopaedic Surgery
DX: M75.112 Incomplete rotator cuff tear or rupture of left shoulder, not specified as traumatic (principal); M25.512 Pain in left shoulder; M19.012 Primary osteoarthritis, left shoulder
CPT/HCPCS: 97110; 97140; 97161; 97535

== ENCOUNTER → 2021-08-27 16:10 | Outpatient (CLI) | payer BC, SELFPAY ==
[2021-08-27 19:03] LABS: BUN Creatinine Ratio 18.9 (6-22); Blood Urea Nitrogen 17 mg/dL (9-20); Calcium 9.2 mg/dL (8.4-10.2); Carbon Dioxide 26 mmol/L (22-32); Chloride 103 mmol/L (98-107); Cholesterol 189 mg/dL (140-199); Estimated Glomerular Filt Rate > 60 mL/min (>60); Glucose 90 mg/dL (80-110); HDL Cholesterol 30 mg/dL (40-60); LDL Cholesterol Calculated 82 mg/dL (<100); Potassium 4.1 mmol/L (3.4-5.1); Sodium 139 mmol/L (137-145); Triglycerides 385 mg/dL (35-150); Uric Acid 4.8 mg/dL (3.5-8.5)
[2021-08-29 04:01] LABS: HEMOLYSIS 21 (0-50); Prostate Specific Antigen Scrn 0.927 ng/mL (0.1-4.0)
== END ==
PROVIDERS: PCP Student in an Organized Health Care Education/Training Program; Referring Provider Student in an Organized Health Care Education/Training Program; Visit Provider Student in an Organized Health Care Education/Training Program
DX: I10 Essential (primary) hypertension (principal); M10.9 Gout, unspecified; E78.2 Mixed hyperlipidemia; Z12.5 Encounter for screening for malignant neoplasm of prostate
CPT/HCPCS: 36415; 80048; 80061; 84550; G0103

== ENCOUNTER 2022-06-26 13:03 | Day surgery (SDC) | payer BC, OTHER, SELFPAY ==
[2022-06-26] VITALS (7 sets, daily range): BP systolic 116–150; BP diastolic 77–91; PULSE 77–84; RESP 12–98; TEMP 36.2–36.6; O2SAT 18–98; BMI 45.8
--- NOTE | 2022-06-26 | PATH_ITS ---
[facility] Accession Number: [id number] No. of containers..02 Tissue . 01 Material submitted: . PART A: colon - TRANSVERSE POLYPS PART B: sigmoid colon - SIGMOID POLYP . 01 Diagnosis: A. Transverse Colon, Polyps, Biopsies: Tubular adenomas. . B. Sigmoid Colon, Polyp, Biopsy: Tubular adenoma. [facility] 07/01/2022 1509 Local . 01 Electronically signed: . Shawanda Tong MD, Pathologist NPI- [id number] . 01 Gross description: . Part A: TRANSVERSE POLYPS: Received in formalin are multiple fragment(s) of jacobs, soft tissue measuring 1.5 x 0.5 x 0.2 cm in aggregate submitted entirely in 1 cassette(s) Part B: SIGMOID POLYP: Received in formalin is 1 fragment(s) of jacobs, soft tissue measuring 1.0 x 0.7 x 0.5 cm which is bisected and submitted entirely in 1 cassette(s) /[facility] 06/27/2022 1334 Local . 01 Pathologist provided ICD-10: D12.3, D12.5 . 01 CPT . 772641, [id number] Specimen Comment: A courtesy copy of this report has been sent to [phone] Performed at: 01 [facility] [address] [place] [address] [address] [facility], [place], [place] [id number] MD Glen Bhat MD Phone: [phone]
[2022-06-26] MEDS: LACTATED RINGERS 1,000 ML 42 ML IV (13:27)
--- NOTE | 2022-06-26 14:34 | P.HP_ITS ---
History of Present Illness History of Present Illness Date Patient Seen: 06/26/22 Time Patient Seen: 14:35 Chief complaint: SDC Narrative: Shade is a 61-year-old man who is here for his screening colonoscopy. He also has had hemorrhoids. [facility] Medical History Gout Hypertension Social History household members: spouse Smoking Status: Never smoker alcohol intake: current Meds Home Medications and Allergies Home Medications Medication Instructions Recorded Confirmed Type allopurinol 300 mg tablet 300 mg PO DAILY #90 tabs 08/27/21 06/26/22 Rx losartan 50 mg tablet 50 mg PO DAILY #90 tabs 08/27/21 06/26/22 Rx simvastatin 40 mg tablet 40 mg PO HS #90 tabs 08/27/21 06/26/22 Rx Allergies Allergy/AdvReac Type Severity Reaction Status Date / Time lisinopril AdvReac Mild Cough Verified 06/26/22 13:15 Exam Vital Signs (past 8 hours): - 06/26/22 13:18 Temperature 97.3 F L Pulse Rate 84 Respiratory Rate 18 Blood Pressure 150/91 H Pulse Oximetry 98 Oxygen Delivery Method Room Air Oxygen Delivery Method Room Air Const General: healthy appearing Assessment & Plan Assessment and plan (1) Colon cancer screening: Status: Acute Plan We reviewed the plan for colonoscopy with rubber-band ligation of hemorrhoids. He would like to proceed.
--- NOTE | 2022-06-26 15:15 | PM.OP.COLON ---
Operative Date/Time/Diagnoses Date of procedure: 06/26/22 Time of procedure: 15:15 Pre-op diagnosis: Colon cancer screening and hemorrhoids Post-op diagnosis: same Procedure & Clinicians Study performed: Colonoscopy and rubber-band ligation Same procedure as scheduled: Yes Surgeon: Choco De La Cruz Procedure Notes Procedure in detail: Surgeon: Choco De La Cruz MD Anesthesia: Papo Gibson MD Procedure: The patient was brought to the endoscopy suite, placed in left lateral decubitus position. The patient was connected to monitoring devices. A time-out was performed. Sedation was administered. Once the patient was adequately sedated, a digital rectal exam was performed and was normal. The scope was then inserted and advanced to the cecum where the appendiceal orifice was identified and photographed. The scope was then slowly withdrawn over greater than 6 minutes. The mucosa was thoroughly inspected. There were 2 7 mm polyps in the transverse colon and each was removed with a hot snare. There was a 1.2 cm pedunculated polyp in the distal sigmoid colon at roughly 19 cm and it was removed with a hot snare. We injected some tattoo ink adjacent to the polypectomy site. The scope was retroflexed in the rectum. There were some mild internal hemorrhoids. The scope was straightened and removed. We then proceeded to perform rubber-band ligation. Rubber bands were placed on the left lateral and right anterior hemorrhoidal columns. The patient was awakened and brought to recovery. Scope withdrawal time: 11 minutes Sedation time: 21 minutes EBL: 5 mL Findings: 2 7 mm polyps in the transverse colon, a 1.2 cm pedunculated polyp distal sigmoid and internal hemorrhoids Post-procedure Disposition: PACU
== END 2022-06-26 15:55 | disposition home or self-care (01) ==
PROVIDERS: PCP Student in an Organized Health Care Education/Training Program; Referring Provider Surgery; Visit Provider Surgery
PROC: 0DJD8ZZ Inspection of Lower Intestinal Tract, Via Natural or Artificial Opening Endoscopic (ICD-10-PCS; CPT 45378; principal; 2022-06-26 14:15)
DX: Z12.11 Encounter for screening for malignant neoplasm of colon (principal); K64.8 Other hemorrhoids; D12.3 Benign neoplasm of transverse colon; D12.5 Benign neoplasm of sigmoid colon
CPT/HCPCS: 45385; 45381; 46221; J2704; J3010

== ENCOUNTER → 2023-07-17 08:24 | Outpatient (CLI) | payer OTHER, SELFPAY ==
[2023-07-17 09:39] LABS: Hemoglobin A1C% w Est Avg Glu 5.6 % (4.0-6.0)
[2023-07-17 09:44] LABS: Alanine Aminotransferase 28 IU/L (<50); Albumin 4.6 g/dL (3.5-5.0); Albumin Globulin Ratio 1.4 (1.0-2.8); Alkaline Phosphatase 73 U/L (38-126); Aspartate Aminotransferase 31 IU/L (17-59); BUN Creatinine Ratio 17.4 (6-22); Bilirubin Total 0.7 mg/dL (0.2-1.3); Blood Urea Nitrogen 16 mg/dL (9-20); Calcium 9.4 mg/dL (8.4-10.2); Carbon Dioxide 28 mmol/L (22-32); Chloride 104 mmol/L (98-107); Cholesterol 200 mg/dL (140-199); Estimated Glomerular Filt Rate > 60 mL/min (>60); Globulin 3.3 g/dL (1.7-4.1); Glucose 114 mg/dL (80-110); HDL Cholesterol 37 mg/dL (40-60); HEMOLYSIS < 15 (0-50); LDL Cholesterol Calculated 99 mg/dL (<100); Potassium 4.7 mmol/L (3.4-5.1); Sodium 138 mmol/L (137-145); Total Protein 7.9 g/dL (6.3-8.2); Triglycerides 322 mg/dL (35-150)
[2023-07-17 10:13] LABS: Prostate Specific Antigen Scrn 1.46 ng/mL (0.1-4.0)
[2023-07-17 10:33] LABS: HIV 1 & 2 Ab/Ag 4th Gen Combo NEGATIVE (NEGATIVE); Hep C Virus Ab w/Reflex Quant NEGATIVE s/c (NEGATIVE)
== END ==
PROVIDERS: PCP Family Medicine; Referring Provider Family Medicine; Visit Provider Family Medicine
DX: E78.2 Mixed hyperlipidemia (principal); M10.9 Gout, unspecified; I10 Essential (primary) hypertension; E66.9 Obesity, unspecified; Z12.5 Encounter for screening for malignant neoplasm of prostate; Z11.59 Encounter for screening for other viral diseases; Z11.4 Encounter for screening for human immunodeficiency virus [HIV]
CPT/HCPCS: 36415; 80053; 80061; 83036; 84550; 86803; 87389; G0103

== ENCOUNTER → 2024-07-22 08:28 | Outpatient (CLI) | payer OTHER, SELFPAY ==
[2024-07-22 09:21] LABS: Hemoglobin A1C% w Est Avg Glu 5.5 % (4.0-6.0)
[2024-07-22 09:39] LABS: Alanine Aminotransferase 29 IU/L (<50); Albumin 4.7 g/dL (3.5-5.0); Albumin Globulin Ratio 1.6 (1.0-2.8); Alkaline Phosphatase 90 U/L (38-126); Aspartate Aminotransferase 34 IU/L (17-59); BUN Creatinine Ratio 9.5 (6-22); Bilirubin Total 0.9 mg/dL (0.2-1.3); Blood Urea Nitrogen 10 mg/dL (9-20); Calcium 9.8 mg/dL (8.4-10.2); Carbon Dioxide 27 mmol/L (22-32); Chloride 101 mmol/L (98-107); Cholesterol 173 mg/dL (140-199); Estimated Glomerular Filt Rate > 60 mL/min (>60); Glucose 104 mg/dL (70-99); HDL Cholesterol 34 mg/dL (40-60); HEMOLYSIS < 15 (0-50); LDL Cholesterol Calculated 95 mg/dL (<100); Potassium 4.5 mmol/L (3.4-5.1); Sodium 138 mmol/L (137-145); Total Protein 7.7 g/dL (6.3-8.2); Triglycerides 221 mg/dL (35-150); Uric Acid 5.4 mg/dL (3.5-8.5)
== END ==
LOC: LAB 08:29
PROVIDERS: PCP Family Medicine; Referring Provider Family Medicine; Visit Provider Family Medicine
DX: I10 Essential (primary) hypertension (principal); M1A.00X0 Idiopathic chronic gout, unspecified site, without tophus (tophi); E78.2 Mixed hyperlipidemia; E66.9 Obesity, unspecified
CPT/HCPCS: 36415; 80053; 80061; 83036; 84550